=== PATIENT | female | born 1940 | race Caucasian/White ===

== ENCOUNTER 2024-05-07 11:27 | Observation (INO) ==
[2024-05-07] MEDS: dilTIAZem HCl 5 MG/ML 5 ML VIAL IV STA ×2 (12:11→12:58)
[2024-05-07 12:24] LABS: Basophils # (auto) 0.02 K/uL (0.00-0.20); Basophils % (auto) 0.1 %; Eosinophils # (auto) 0.01 K/uL (0.00-0.50); Eosinophils % (auto) 0.1 %; Hematocrit (blood only) 41.1 % (37.0-47.0); Immature Granulocytes # (auto) 0.24 K/uL (0.01-0.20); Immature Granulocytes % (auto) 1.3 %; Lymphocytes # (auto) 2.61 K/uL (1.20-3.40); Lymphocytes % (auto) 14.5 %; Mean Corpuscular Hemoglobin 29.8 pg (25.0-34.0); Mean Corpuscular Hgb Conc 34.1 g/dL (32.0-36.0); Mean Corpuscular Volume 87.4 fL (80.0-100.0); Monocytes # (auto) 0.94 K/uL (0.11-0.59); Monocytes % (auto) 5.2 %; Neutrophils # (auto) 14.24 K/uL (1.40-6.50); Neutrophils % (auto) 78.8 %; Platelet Count 402 K/uL (130-400); RDW Coefficient of Variation 12.8 % (11.5-14.5); RDW Standard Deviation 41.2 fL (36.4-46.3); White Blood Count 18.06 K/ul (4.8-10.8)
[2024-05-07 12:44] LABS: Albumin Globulin Ratio 0.9 (0.9-2); Albumin Level 3.7 gm/dl (3.4-5.0); BUN Creatinine Ratio 24.7 (10-20); Bilirubin,Total 0.8 mg/dl (0.2-1.0); Calcium 9.7 mg/dl (8.6-10.3); Creatinine Clr Calc Pharmacy 38.2 ml/min; Globulin 4.3 gm/dl (2.5-4.0); Potassium 2.8 mmol/L (3.5-5.1)
[2024-05-07 12:49] LABS: Troponin I High Sensitivity 29.9 pg/ml (0-14)
[2024-05-07] MEDS: SODIUM CHLORIDE 0.9% 500 ML IV ONE (13:02)
[2024-05-07 13:09] LABS: D Dimer 1400 ug/L FEU (0-500)
--- NOTE | 2024-05-07 13:14 | XRay Report ---
XR chest 1V portable CLINICAL HISTORY: Chest pain, nonspecific. Cough. COMPARISON STUDY: No previous studies for comparison. FINDINGS: There is no pneumothorax. A suspected small right pleural effusion is present. There is als o right basilar opacity. Minimal left basilar opacity is noted. The heart is mildly enlarged. There i s no evidence for pulmonary edema. There is prominence of the left mediastinal contour at the expecte d location of the left pulmonary artery. A 1.8 cm irregular right midlung nodular density is present. IMPRESSION: 1. Right basilar airspace opacity which favors pneumonia. Radiographic follow-up to ensure resolution is recommended. Suspected small right pleural effusion. 2. 1.8 cm right midlung nodular density. This may also be infectious however a pulmonary nodule could appear similar. This can be assessed on follow-up exams. 3. Prominence of the left mediastinal contour at the expected location of the left pulmonary artery. This could be vascular in etiology. However, lymphadenopathy or a mass cannot be completely excluded. This could be assessed with a chest CT. ACT 112: Negative or not required by law. Electronically signed by: Thony Narayan M.D. 05/07/2024 1:09 PM
[2024-05-07 13:23] LABS: Adenovirus PCR Not Detected (NotDetected); Bordetella parapertussis PCR Not Detected (NotDetected); Bordetella pertussis PCR Not Detected (NotDetected); Chlamydia pneumoniae PCR Not Detected (NotDetected); Coronavirus 229E PCR Not Detected (NotDetected); Coronavirus CoV-2 (COVID19)PCR Not Detected (NotDetected); Coronavirus HKU1 PCR Not Detected (NotDetected); Coronavirus NL63 PCR Not Detected (NotDetected); Coronavirus OC43PCR Not Detected (NotDetected); Human Metapneumovirus PCR Not Detected (NotDetected); Influenza A PCR Not Detected (NotDetected); Influenza B PCR Not Detected (NotDetected); Mycoplasma pneumoniae PCR Not Detected (NotDetected); Parainfluenza Virus 1 PCR Not Detected (NotDetected); Parainfluenza Virus 2 PCR Not Detected (NotDetected); Parainfluenza Virus 3 PCR Not Detected (NotDetected); Parainfluenza Virus 4 PCR Not Detected (NotDetected); Respiratory Syncytial VirusPCR Not Detected (NotDetected); Rhinovirus/Enterovirus PCR Not Detected (NotDetected)
[2024-05-07] MEDS: OPTIRAY 320 125ml IV ONE (13:41)
[2024-05-07] MEDS: POTASSIUM CHLORIDE CRTAB 20 MEQ TABCR PO STA (13:49)
--- NOTE | 2024-05-07 14:25 | CT Scan Report ---
CT angio chest PE protocol CT DOSE: 375.37 mGy.cm HISTORY: 83 years-old Female with PE. Acute shortness of breath with chest pain TECHNIQUE: Multiple CTA images of the chest were obtained after the intravenous administration of 119 ml Optiray. Coronal and sagittal MIPS were obtained from the axial data set and were submitted for review. All measurements were obtained according to NASCET criteria. A dose lowering technique was u tilized adhering to the principles of ALARA. COMPARISON: Chest radiograph of same day FINDINGS: CTA: Moderate cardiomegaly. Extensive coronary artery calcifications. Trace pericardial effusion. Moderate atherosclerosis of the thoracic aorta with ascending ectasia measuring 3.8 x 3.8 cm. Borderline dila tion of the main pulmonary artery at 3 cm. No pulmonary emboli. CT CHEST: Unremarkable thyroid. Mediastinal and right hilar lymphadenopathy includes a 2.1 x 1.1 cm right hilar lymph node. Subcarinal lymph nodes measure up to 1.2 cm in short axis. There is moderate right hemidiaphragm elevation. Trace right pleural effusion. Mild biapical pleural- parenchymal scarring. Mild bronchiectasis with mucus plugging of the right middle lobe and lingula. S cattered bilateral tree-in-bud nodules with patchy segmental consolidation of the right lower lobe. 9 mm nodule with eccentric calcification and central macroscopic fat, image 73 series 4. Minimal patch y subpleural consolidation of the basal left lower lobe. Probable cyst of the right hepatic lobe. No acute upper abdominal abnormality. Soft tissues are withi n normal limits. Nonspecific distal esophageal wall thickening. No acute fracture. IMPRESSION: 1. Cardiomegaly without pulmonary emboli identified. 2. Patchy right lung/right lower lobe predominant opacities suggestive of pneumonia versus aspiration pneumonitis. 3. Bilateral tree-in-bud nodules compatible with an infectious or inflammatory bronchiolitis. 4. 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 5. 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 6. Mediastinal and right hilar lymphadenopathy is likely reactive. ACT 112: Negative or not required by law. The above report was generated using voice recognition software. It may contain grammatical, syntax o r spelling errors. Electronically signed by: Guanako Gutierres M.D. 05/07/2024 2:19 PM
--- NOTE | 2024-05-07 15:07 | Electrocardiogram Report ---
Test Reason : Blood Pressure : */* mmHG Vent. Rate : 148 BPM Atrial Rate : 300 BPM P-R Int : * ms QRS Dur : 102 ms QT Int : 264 ms P-R-T Axes : * -62 103 degrees QTcB Int : 414 ms Possible Atrial flutter with variable A-V block with premature ventricular or aberrantly conducted co mplexes Left axis deviation Minimal voltage criteria for LVH, may be normal variant ( [place] product ) Nonspecific ST and T wave abnormality Abnormal ECG No previous ECGs available Confirmed by Lebron Weaver ([id number]) on 05/07/2024 3:07:01 PM Referred By: Za Mays Confirmed By: Lebron Weaver
--- NOTE | 2024-05-07 16:28 | Emergency Department Note ---
ED Visit Note I was consulted by the Advanced Practice Provider. I personally approved the management plan and take responsibility for the patient management. This includes the aspects of: -History/Physical -MDM -I independently interpreted the following studies:Studies and results .
[2024-05-07] MEDS: cefTRIAXone SODIUM 1,000 MG/50 ML BAG IV STA (16:33)
--- NOTE | 2024-05-07 16:49 | History & Physical Report ---
<Statement entered by Crow Curran, DO - 05/12/24 07:15> I have seen and examined the patient and have discussed the case with the provider above. I have reviewed the advanced practitioner's documentation, and I agree with, and take responsibility for that plan of care. Patient seen and examined on the day of admission. Patient feeling somewhat improved since admission. Physical exam: Lungs: Coarse breath sounds Discussed plan of care as outlined below with SHANNAN Date of Service May 07, 2024 Assessment & Plan (1) Atrial flutter with rapid ventricular response: (2) Pneumonia: (3) Hypokalemia: (4) HTN (hypertension): (5) Dyslipidemia: Plan: Patient is 83 year old female with PMH HTN, dyslipidemia, atrial flutter anticoagulated on Eliquis presented to ER for URI symptoms x 1 week and tachycardia today. #Pneumonia, RLL, community acquired WBC: 18. Procalcitonin:0.1, Lactate WNL. Negative respiratory BioFire panel. D- dimer: 1400 CXR: Right basilar airspace opacity which favors pneumonia CTA Chest: Cardiomegaly without pulmonary emboli identified. Patchy right lung/right lower lobe predominant opacities suggestive of pneumonia versus aspiration pneumonitis. Bilateral tree-in-bud nodules compatible with an infectious or inflammatory bronchiolitis. 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 Mediastinal and right hilar lymphadenopathy is likely reactive. In ER given Rocephin, doxycycline Will continue Rocephin, doxycycline Supplemental oxygen as needed Guaifenesin Incentive spirometry, flutter valve, Mucinex, Xopenex nebs as needed CBC in am #Aflutter RVR: #Hypokalemia History atrial flutter anticoagulated on Eliquis Initial EKG at 11:38 AM: Atrial flutter, RVR rate 148, nonspecific ST and T wave changes. Initial ER presentation patient afebrile, P: 137, R: 20, BP 114/68, 95% on room air In ER given 500 mL NSS, initial Cardizem 10 mg IV bolus followed by diltiazem 20 mg IV bolus. KCl 40 mEq p.o., 1K rider, During ER course patient converted to normal sinus rhythm with heart rates in the 80s. Repeat EKG at 2:32 PM normal sinus rhythm, rate 74 Suspect rapid aflutter secondary to underlying illness and electrolyte abnormality Continue to replace potassium. Goal potassium of 4 or greater. Magnesium level pending Troponin: 29-->18 Suspect demand ischemia in setting of rapid aflutter Trend troponin Echo Continue home metoprolol succinate, Eliquis If troponins uptrending or recurrent/persistent RVR consider cardiology consult CBC, BMP, magnesium, TSH in am #HTN Continue home amlodipine, metoprolol succinate Hold olmesartan, HCTZ #Dyslipidemia Continue home atorvastatin DVT Prophylaxis On Eliquis Admit PCU Full Code as per discussion with pt Follows with Za Mays PA-C, [facility] for routine care Pt was seen and care coordinated with Dr Curran See addendum I spent a total of 76 minutes reviewing notes, outpatient records, labs, medication, coordinating, documenting and providing care for this patient excluding time spent in the performance of separately billed services. History of Present Illness Chief Complaint: cough, rapid heart rate Primary Care Provider: Za Mays PA-C Patient is 83 year old female with PMH HTN, dyslipidemia, atrial flutter anticoagulated on Eliquis presented to ER for URI symptoms x 1 week and tachycardia today. Per outpatient chart review seen in clinic today for URI symptoms and found to be tachycardic and referred to ER. Patient states for past week has had nasal and chest congestion, cough. Last several days cough has become productive of green-yellow sputum. Reports last couple days feeling short of breath with exertion. Denies chest pain. She states she faintly felt like her heart was racing but she did not feel was not significant. Has been feeling cold at home. Has not been taking her temperature at home. Denies chills. States feels a little lightheaded past couple days. Denies syncope. Reports generalized weakness and feels wiped out. Decreased oral intake secondary to decreased appetite. Deneis vomiting or diarrhea. Has been using mucinex at home without much relief. Denies pseudoephedrine products. Denies SOMMERS, neck pain, CP, hemoptysis, abdominal pain, paresthesias, extremity edema, rashes, urinary symptoms. Allergies Allergy/AdvReac Type Severity Reaction Status Date / Time fluorouracil [From Efudex] Allergy Severe Verified 01/15/24 09:28 Home Medications Medication Instructions Recorded Confirmed Type fluticasone propionate 50 2 spray intranasal DAILY PRN nasal 04/02/22 05/07/24 History mcg/actuation nasal congestioni spray,suspension (Flonase Allergy Relief) apixaban 5 mg tablet 5 mg PO BID #180 tabs 07/04/23 05/07/24 Rx aspirin 81 mg tablet,delayed 81 mg PO DAILY #90 tabs 07/04/23 05/07/24 Rx release (Adult Aspirin Regimen) atorvastatin 20 mg tablet 20 mg PO DAILY #90 tabs 07/04/23 05/07/24 Rx metoprolol succinate 25 mg 25 mg PO DAILY #90 tabs 07/04/23 05/07/24 Rx tablet,extended release 24 hr albuterol sulfate 90 mcg/actuation 2 puff inhalation Q6H PRN sob 05/07/24 05/07/24 History aerosol inhaler amlodipine 5 mg tablet 5 mg PO QAM 05/07/24 05/07/24 History dextran 70-hypromellose (PF) 0.1 2 drp ophthalmic (eye) BID PRN Dry 05/07/24 05/07/24 History %-0.3 % eye drops in a dropperette Eye(S) (Artificial Tears (PF)) olmesartan 40 1 tab PO QAM 05/07/24 05/07/24 History mg-hydrochlorothiazide 25 mg tablet Past Med/Surg History Problem List (Updated 05/07/24 @ 20:49 by Claudia Bee PA-C) Hypokalemia Pneumonia Atrial flutter with rapid ventricular response HTN (hypertension) Dyslipidemia Benign essential hypertension Atrial flutter Surgical History History of hysterectomy Family History Other Dementia Social History Smoking Status: Never smoker Second Hand Exposure: No; Do You Dip or Chew Tobacco: No; Hx Alcohol Use: No Hx Substance Use: No Preferred Language: Grenadian Communication Ability: Effective Waxer Operator Required: No Beliefs That Will Affect Care: None Current Living Situation: Family Current Living Situation Comment: Lives with daughter at home Other Information That Helps Us Care for You: No Feels Safe at Home: Yes Assistive Devices: None Review of Systems Review of Systems: All systems reviewed & are unremarkable except as noted in HPI & below Physical Exam 2 Physical Exam: General: no distress, WDWN Head: normocephalic, atraumatic Eyes: conjunctiva non-injected, anicteric ENT: normal inspection external ears, nose, mucous membranes mildly dry Neck: supple, trachea midline Lungs: no respiratory distress, coarse breath sounds throughout CV: RRR, rate 84, +murmur, no pretibial edema Abd: normal BS, soft, non-tender Ext: no cyanosis, no calf tenderness Neuro: A&O x 3, no focal deficits noted, normal affect Skin: warm, dry Results & Data Results & Data Vital Signs (Past 12 Hours) Vital Signs Temp Pulse Resp BP Pulse Ox O2 Del Method 05/07/24 15:47 80 05/07/24 15:22 92 05/07/24 15:00 77 25 H 116/68 93 05/07/24 13:15 94 H 24 116/68 05/07/24 13:00 117/87 05/07/24 12:54 127 H 26 H 05/07/24 12:45 125 H 25 H 111/77 90 Room Air 05/07/24 12:15 109/57 L 05/07/24 12:03 149 H 27 H 93 Room Air 05/07/24 12:01 149 H 05/07/24 12:00 127/102 H 05/07/24 11:57 141 H 23 94 Room Air 05/07/24 11:30 36.7 C 137 H 20 114/68 95 Room Air Laboratory Results Short CBC 05/07/24 Range/Units 11:40 WBC 18.06 H (4.8-10.8) K/ul Hgb 14.0 (12.0-16.0) g/dl Hct 41.1 (37.0-47.0) % Plt Count 402 H (130-400) K/uL BMP 05/07/24 11:40 Sodium 134 L Potassium 2.8 L Chloride 92 L Carbon Dioxide 30 BUN 22 Creatinine 0.89 Glucose 103 H Calcium 9.7 Liver Function 05/07/24 Range/Units 11:40 Total Bilirubin 0.8 (0.2-1.0) mg/dl AST 41 H (13-39) U/L ALT 47 (7-52) U/L Alkaline Phosphatase 151 H (34-104) U/L Albumin 3.7 (3.4-5.0) gm/dl Diagnostic Findings Chest X-Ray 05/07/24 12:02 XR chest 1V portable CLINICAL HISTORY: Chest pain, nonspecific. Cough. COMPARISON STUDY: No previous studies for comparison. FINDINGS: There is no pneumothorax. A suspected small right pleural effusion is present. There is also right basilar opacity. Minimal left basilar opacity is noted. The heart is mildly enlarged. There is no evidence for pulmonary edema. There is prominence of the left mediastinal contour at the expected location of the left pulmonary artery. A 1.8 cm irregular right midlung nodular density is present. IMPRESSION: 1. Right basilar airspace opacity which favors pneumonia. Radiographic follow-up to ensure resolution is recommended. Suspected small right pleural effusion. 2. 1.8 cm right midlung nodular density. This may also be infectious however a pulmonary nodule could appear similar. This can be assessed on follow-up exams. 3. Prominence of the left mediastinal contour at the expected location of the left pulmonary artery. This could be vascular in etiology. However, lymphadenopathy or a mass cannot be completely excluded. This could be assessed with a chest CT. ACT 112: Negative or not required by law. Electronically signed by: Thony Narayan M.D. 05/07/2024 1:09 PM Chest CTA 05/07/24 13:10 CT angio chest PE protocol CT DOSE: 375.37 mGy.cm HISTORY: 83 years-old Female with PE. Acute shortness of breath with chest pain TECHNIQUE: Multiple CTA images of the chest were obtained after the intravenous administration of 119 ml Optiray. Coronal and sagittal MIPS were obtained from the axial data set and were submitted for review. All measurements were obtained according to NASCET criteria. A dose lowering technique was utilized adhering to the principles of ALARA. COMPARISON: Chest radiograph of same day FINDINGS: CTA: Moderate cardiomegaly. Extensive coronary artery calcifications. Trace pericardial effusion. Moderate atherosclerosis of the thoracic aorta with ascending ectasia measuring 3.8 x 3.8 cm. Borderline dilation of the main pulmonary artery at 3 cm. No pulmonary emboli. CT CHEST: Unremarkable thyroid. Mediastinal and right hilar lymphadenopathy includes a 2.1 x 1.1 cm right hilar lymph node. Subcarinal lymph nodes measure up to 1.2 cm in short axis. There is moderate right hemidiaphragm elevation. Trace right pleural effusion. Mild biapical pleural-parenchymal scarring. Mild bronchiectasis with mucus plugging of the right middle lobe and lingula. Scattered bilateral tree-in-bud nodules with patchy segmental consolidation of the right lower lobe. 9 mm nodule with eccentric calcification and central macroscopic fat, image 73 series 4. Minimal patchy subpleural consolidation of the basal left lower lobe. Probable cyst of the right hepatic lobe. No acute upper abdominal abnormality. Soft tissues are within normal limits. Nonspecific distal esophageal wall thickening. No acute fracture. IMPRESSION: 1. Cardiomegaly without pulmonary emboli identified. 2. Patchy right lung/right lower lobe predominant opacities suggestive of pneumonia versus aspiration pneumonitis. 3. Bilateral tree-in-bud nodules compatible with an infectious or inflammatory bronchiolitis. 4. 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 5. 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 6. Mediastinal and right hilar lymphadenopathy is likely reactive. ACT 112: Negative or not required by law. The above report was generated using voice recognition software. It may contain grammatical, syntax or spelling errors. Electronically signed by: Guanako Gutierres M.D. 05/07/2024 2:19 PM Code Status & VTE Plan VTE Prophylaxis Plan VTE Prophylaxis will be ordered: Yes
[2024-05-07] MEDS: POTASSIUM CHLORIDE / WTR 10 MEQ/100 ML PLCT IV ONE (17:08)
[2024-05-07] MEDS: DOXYCYCLINE HYCLATE 100 MG in DEXTROSE 5% MINI-B 100 ML IV STA (17:09)
[2024-05-07 18:30] LABS: Magnesium 1.9 mg/dl (1.7-2.4)
[2024-05-07] MEDS: POTASSIUM CHLORIDE / WTR 10 MEQ/100 ML PLCT IV SCH (18:44)
[2024-05-07] MEDS ORDERED: FLUTICASONE PROPIONATE NA SPR 16 GM BTL NAE PRN (18:52)
[2024-05-07] MEDS ORDERED: LEVALBUTEROL 1.25 MG/3 ML NEB NEB PRN (18:52)
[2024-05-07] MEDS ORDERED: ACETAMINOPHEN 325 MG TAB PO PRN (18:52)
[2024-05-07] MEDS ORDERED: POLYETHYLENE (MIRALAX) 17 GM PACK PO PRN (18:52)
[2024-05-07] MEDS ORDERED: ARTIFICIAL TEARS OP PRN (19:34)
[2024-05-07] MEDS: MAGNESIUM SULFATE / D5W 1 GM/100 ML BAG IV ONE (21:11)
[2024-05-07] MEDS: guaiFENesin 600 MG TABCR PO SCH (21:16)
[2024-05-07] MEDS: APIXABAN 5 MG TABLET PO SCH (21:16)
[2024-05-07] MEDS: POTASSIUM CHLORIDE CRTAB 20 MEQ TABCR PO ONE (21:17)
[2024-05-08] MEDS: DOXYCYCLINE HYCLATE 100 MG CAP PO SCH (06:00)
[2024-05-08 07:40] LABS: Basophils # (auto) 0.03 K/uL (0.00-0.20); Basophils % (auto) 0.2 %; Eosinophils # (auto) 0.04 K/uL (0.00-0.50); Eosinophils % (auto) 0.3 %; Hematocrit (blood only) 33.3 % (37.0-47.0); Hemoglobin 11.3 g/dl (12.0-16.0); Immature Granulocytes # (auto) 0.16 K/uL (0.01-0.20); Immature Granulocytes % (auto) 1.3 %; Lymphocytes % (auto) 17.3 %; Mean Corpuscular Hemoglobin 29.7 pg (25.0-34.0); Mean Corpuscular Hgb Conc 33.9 g/dL (32.0-36.0); Mean Corpuscular Volume 87.6 fL (80.0-100.0); Monocytes # (auto) 0.77 K/uL (0.11-0.59); Neutrophils # (auto) 9.55 K/uL (1.40-6.50); Neutrophils % (auto) 74.9 %; Platelet Count 309 K/uL (130-400); RDW Coefficient of Variation 13.1 % (11.5-14.5); RDW Standard Deviation 41.4 fL (36.4-46.3); White Blood Count 12.75 K/ul (4.8-10.8)
--- NOTE | 2024-05-08 07:41 | Hospitalist Progress Note ---
Date of Service May 08, 2024 Assessment & Plan (1) Atrial flutter with rapid ventricular response: (2) Pneumonia: (3) Hypokalemia: (4) HTN (hypertension): (5) Dyslipidemia: Plan: Ms. Lynch is an 83 year old female with PMH HTN, dyslipidemia, atrial flutter anticoagulated on Eliquis presented to ER for URI symptoms x 1 week and tachycardia. Patient treated with IV antibiotics thus far with subjective improvement. She has history of pneumonias exacerbating her a fib/flutter. CXR and abd/p CT evaluated from last years in EMR linek with this ongoing peribronchial bandlike opacities +From CT ab/p 04/30: FINDINGS: Lungs: The mild bibasilar bronchiectasis with scattered peribronchial bandlike in nodular consolidative opacities likely secondary to bibasilar pneumonia and subsegmental atelectasis. There is also some patchy bronchiolitis at the lung bases. +CXR 2022 IMPRESSION IMPRESSION: 1. Scattered bibasilar opacities in part secondary to subsegmental atelectasis with superimposed pneumonia to be excluded. 2. Nonspecific ill-defined opacity projecting just above the left hilum for which follow-up nonemergent CT chest recommended for clarification. +FINDINGS Lines/Tubes: None. Lungs/Pleura: There are bibasilar opacities correlating with prior areas of airspace disease on the 04/30/2023 CT as well as a new area of airspace disease in the right mid-upper lung zone. Overall, favor this is thought to reflect persistent acute on chronic infection noting the acute-appearing airspace disease and superimposed bronchiectasis seen on review of priors. No pleural effusions. No discernible pneumothorax. Heart/Mediastinum: Size and contours are within normal limits. Bones/Soft Tissues: No acute osseous finding. Upper Abdomen: Visualized portions are unremarkable. Impression: IMPRESSION Multifocal airspace disease, suspect acute on chronic pneumonia, with marginal worsening from 04/30/2023. Discussed with Pulm off line about Mycobacterium Avium Complex. AFB ordered . Will need PCP follow up for OP pulm management and repeat CT chest in 6 weeks. Otherwise cover for pseudomonas #Pneumonia, RLL, community acquired WBC: 18. Procalcitonin:0.1, Lactate WNL. Negative respiratory BioFire panel. D- dimer: 1400 CXR: Right basilar airspace opacity which favors pneumonia CTA Chest: Cardiomegaly without pulmonary emboli identified. Patchy right lung/right lower lobe predominant opacities suggestive of pneumonia versus aspiration pneumonitis. Bilateral tree-in-bud nodules compatible with an infectious or inflammatory bronchiolitis. 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 Mediastinal and right hilar lymphadenopathy is likely reactive. In ER given Rocephin, doxycycline Transitioned to Cefepime, Doxy Supplemental oxygen as needed Guaifenesin Incentive spirometry, flutter valve, Mucinex, Xopenex nebs as needed CBC in am #Aflutter RVR: #Hypokalemia History atrial flutter anticoagulated on Eliquis Initial EKG at 11:38 AM: Atrial flutter, RVR rate 148, nonspecific ST and T wave changes. Initial ER presentation patient afebrile, P: 137, R: 20, BP 114/68, 95% on room air In ER given 500 mL NSS, initial Cardizem 10 mg IV bolus followed by diltiazem 20 mg IV bolus. KCl 40 mEq p.o., 1K rider, During ER course patient converted to normal sinus rhythm with heart rates in the 80s. Repeat EKG at 2:32 PM normal sinus rhythm, rate 74 Suspect rapid aflutter secondary to underlying illness and electrolyte abnormality Continue to replace potassium. Goal potassium of 4 or greater. Magnesium level pending Troponin: 29-->18 Suspect demand ischemia in setting of rapid aflutter Trend troponin Echo: with pulm HTN possible 2/2 lung disease, EF 60-65% Continue home metoprolol succinate, Eliquis CTM on tele #HTN Continue home amlodipine, metoprolol succinate Hold olmesartan, HCTZ #Dyslipidemia Continue home atorvastatin DVT Prophylaxis On Eliquis Admit PCU Full Code as per discussion with pt Follows with Za Mays PA-C, [facility] for routine care Admission and Anticipated Discharge Date Admission Date: May 07, 2024 Subjective NAEO sitting on bedside eating breakfast Reports feeling much better coughwise--denies any fevers Inquired about past symptoms: she denies history of hemoptysis, chronic cough However has been to hospital 3 times over the last year for pneumonias Physical Exam Constitutional: WD/WN, vitals as above Respiratory: course bilateral breath sounds Cardiovascular: RRR, no murmur, no edema Gastrointestinal (Abdomen): normal bowel sounds, soft, nontender, no hepatosplenomegaly Results & Data Results & Data Vital Signs (Past 12 Hours) Vital Signs Temp Pulse Pulse Resp BP Pulse Ox O2 Del Method 05/08/24 07:31 36.9 C 81 17 133/73 91 Room Air 05/08/24 03:56 37.0 C 80 18 121/72 92 Room Air 05/07/24 23:32 37.5 C 84 18 123/66 95 Room Air 05/07/24 22:11 Room Air 05/07/24 21:54 84 05/07/24 19:45 37.2 C 88 18 125/66 91 Room Air Laboratory Results Short CBC 05/08/24 Range/Units 06:23 WBC 12.75 H (4.8-10.8) K/ul Hgb 11.3 L (12.0-16.0) g/dl Hct 33.3 L (37.0-47.0) % Plt Count 309 (130-400) K/uL BMP 05/08/24 06:23 Sodium 134 L Potassium 4.2 D Chloride 98 Carbon Dioxide 29 BUN 15 Creatinine 0.66 Glucose 88 Calcium 8.9 Medications Administered Home Medications Medication Instructions Recorded Confirmed Last Taken fluticasone propionate 50 2 spray intranasal DAILY PRN nasal 04/02/22 05/07/24 Unknown mcg/actuation nasal congestioni spray,suspension (Flonase Allergy Relief) apixaban 5 mg tablet 5 mg PO BID #180 tabs 07/04/23 05/07/24 05/07/24 aspirin 81 mg tablet,delayed 81 mg PO DAILY #90 tabs 07/04/23 05/07/24 05/07/24 release (Adult Aspirin Regimen) atorvastatin 20 mg tablet 20 mg PO DAILY #90 tabs 07/04/23 05/07/24 05/07/24 metoprolol succinate 25 mg 25 mg PO DAILY #90 tabs 07/04/23 05/07/24 05/07/24 tablet,extended release 24 hr albuterol sulfate 90 mcg/actuation 2 puff inhalation Q6H PRN sob 05/07/24 05/07/24 Unknown aerosol inhaler amlodipine 5 mg tablet 5 mg PO QAM 05/07/24 05/07/24 05/07/24 dextran 70-hypromellose (PF) 0.1 2 drp ophthalmic (eye) BID PRN Dry 05/07/24 05/07/24 Unknown %-0.3 % eye drops in a dropperette Eye(S) (Artificial Tears (PF)) olmesartan 40 1 tab PO QAM 05/07/24 05/07/24 05/07/24 mg-hydrochlorothiazide 25 mg tablet Active Medications Generic Name Dose Route Start Last Admin Trade Name Freq PRN Reason Stop Dose Admin Amlodipine Besylate 5 mg 05/08/24 09:00 05/08/24 08:29 Amlodipine Besylate 5 Mg Tab PO 06/07/24 08:59 5 mg QAM BERHANE Administration Apixaban 5 mg 05/07/24 21:00 05/08/24 08:29 Apixaban 5 Mg Tablet PO 06/06/24 20:59 5 mg BID BERHANE Administration Aspirin 81 mg 05/08/24 09:00 05/08/24 08:29 Aspirin 81 Mg Ectab PO 06/07/24 08:59 81 mg DAILY BERHANE Administration Atorvastatin Calcium 20 mg 05/08/24 09:00 05/08/24 08:29 Atorvastatin 20 Mg Tab PO 06/07/24 08:59 20 mg DAILY BERHANE Administration Doxycycline Hyclate 100 mg 05/08/24 07:00 05/08/24 06:00 Doxycycline Hyclate 100 Mg Cap PO 05/13/24 06:59 100 mg Q12H BERHANE Administration Guaifenesin 600 mg 05/07/24 21:00 05/08/24 08:29 Guaifenesin 600 Mg Tabcr PO 06/06/24 20:59 600 mg Q12 BERHANE Administration Metoprolol Succinate 25 mg 05/08/24 09:00 05/08/24 08:29 Metoprolol Succ 25mg Ext Rel Tab PO 06/07/24 08:59 25 mg DAILY BERHANE Administration
[2024-05-08 07:53] LABS: BUN Creatinine Ratio 22.7 (10-20); Calcium 8.9 mg/dl (8.6-10.3); Magnesium 1.9 mg/dl (1.7-2.4); Potassium 4.2 mmol/L (3.5-5.1)
[2024-05-08 08:11] LABS: Thyroid Stimulating Hormone 2.765 uIu/ml (0.300-4.500)
[2024-05-08] MEDS: METOPROLOL SUCC 25MG EXT REL TAB PO SCH (08:29)
[2024-05-08] MEDS: ASPIRIN 81 MG ECTAB PO SCH (08:29)
[2024-05-08] MEDS: amLODIPine BESYLATE 5 MG TAB PO SCH (08:29)
[2024-05-08] MEDS: ATORVASTATIN 20 MG TAB PO SCH (08:29)
--- NOTE | 2024-05-08 08:44 | Electrocardiogram Report ---
Test Reason : Blood Pressure : */* mmHG Vent. Rate : 74 BPM Atrial Rate : 74 BPM P-R Int : 138 ms QRS Dur : 102 ms QT Int : 398 ms P-R-T Axes : 60 -59 57 degrees QTcB Int : 441 ms Normal sinus rhythm Left anterior fascicular block Left ventricular hypertrophy with repolarization abnormality Abnormal ECG When compared with ECG of 07-May-2024 11:38, Sinus rhythm has replaced Atrial flutter Vent. rate has decreased by 74 bpm Confirmed by Candelario Arzate ([id number]) on 05/08/2024 8:44:09 AM Referred By: Za Mays Confirmed By: Candelario Arzate
--- NOTE | 2024-05-08 09:09 | Electrocardiogram Report ---
Test Reason : Blood Pressure : */* mmHG Vent. 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
[2024-05-08] MEDS: CEFEPIME 2000MG 2,000 MG/20 ML SYR IV SCH (14:01)
[2024-05-08] MEDS ORDERED: cefTRIAXone SODIUM 2,000 MG/50 ML BAG IV SCH (15:00)
[2024-05-09 05:58] LABS: Hematocrit (blood only) 32.7 % (37.0-47.0); Hemoglobin 10.9 g/dl (12.0-16.0); Mean Corpuscular Hemoglobin 29.4 pg (25.0-34.0); Mean Corpuscular Hgb Conc 33.3 g/dL (32.0-36.0); Mean Corpuscular Volume 88.1 fL (80.0-100.0); Mean Platelet Volume 9.7 fL (9.4-12.4); Platelet Count 300 K/uL (130-400); RDW Coefficient of Variation 12.3 % (11.5-14.5); RDW Standard Deviation 39.8 fL (36.4-46.3); Red Blood Count 3.71 M/uL (4.20-5.40); White Blood Count 10.27 K/ul (4.8-10.8)
[2024-05-09 06:13] LABS: BUN Creatinine Ratio 16.4 (10-20); Potassium 4.2 mmol/L (3.5-5.1)
[2024-05-09] MEDS: levoFLOXacin 750 MG TAB PO SCH (11:12)
--- OUTSIDE RECORDS SUMMARY | 2024-05-09 14:46 | External Medical Summary | Summary of Care ---
Author Name Unknown Organization [facility] Address [address] [place] [address] Phone [phone] Care Team Providers Care Health Education Teacher Name Role Phone Za Mays PA-C Primary Care Provider Reason for Visit * Reason Onset Date Comments Follow Up Medication Administration 03/29/2024 Flu an d/or Pneumo Inj Encounter Details Date Type Department Care Team ([facility] st Contact Info) Description 03/29/2024 8:00 AM EDT Office Visit [address] [phone] Za Mays PA-C [address] [place] [id number] Atrial flutter, unspecified type (HCC)*; HTN, goal below 150/90; Mixed hyperlipidemia; Localized osteoporosis without current pathological fracture; History of basal cell carcinoma; Pseudoexfoliation (PXF) glaucoma, severe stage; Wears partial dentures; Need for prophylactic vaccination and inoculation against influenza; Need for vaccination for zoster Allergies Active Allergy Reactions Criticality Noted Date Comments Fluorouracil Allergy test positive High 07/24/2022 documented as of this encounter (statuses as of 03/29/2024) Medications Medication Sig Dispensed Refills Start Date End Date Status Apixaban 5 MG Oral Tablet (Eliquis) Take 1 Tablet by mouth in the morning and 1 Tablet before bedtime. 60 Tablet 6 07/03/2022 Active Artificial Tears 0.1-0.3 % Ophthalmic Solution (Dextran 70-Hypromellose) Use twice daily as needed for dry eyes 30 mL 3 07/03/2022 Active Hydrocortisone 2.5 % External Ointment Apply to face 2-3 times per day 60 g 1 07/24/2022 Active Aspirin 81 MG Oral Tablet Chewable Take 1 Tablet by mouth in the morning. Active Atorvastatin Calcium 20 MG Oral Tablet (Lipitor) TAKE 1 TABLET BY MOUTH ONCE DAILY IN THE MORNING 90 Tablet 3 06/03/2023 Active Fluticasone Propionate 50 MCG/ACT Nasal Suspension (Flonase) Administer 2 Sprays into nostril in the morning. 16 mL 5 09/30/2023 Active amLODIPine Besylate 2.5 MG Oral Tablet (Norvasc)Indication s:HTN, goal below 150/90 Take 1 Tablet by mouth in the morning. 90 Tablet 3 03/29/2024 Active Olmesartan Medoxomil-HCTZ 40-25 MG Oral TabletIndications:H TN, goal below 150/90 Take 1 Tablet by mouth in the morning. 90 Tablet 1 03/29/2024 Active Metoprolol Succinate ER 25 MG Oral Tablet Extended Release 24 Hour (toPROL XL) Take 1 Tablet by mouth in the morning. 90 Tablet 3 03/29/2024 Active Zoster Vac Recomb Adjuvanted 50 MCG/0.5ML Intramuscular Suspension Reconstituted (Shingrix)Indicatio ns:Need for vaccination for zoster Inject 0.5 mL into a large muscle now and repeat dose in 60 to 180 days 1 Each 1 03/29/2024 Active Metoprolol Succinate ER 25 MG Oral Tablet Extended Release 24 Hour (toPROL XL) Take 1 Tablet by mouth in the morning. 90 Tablet 3 07/03/2022 4 Discontinue d(Refill) Alendronate Sodium 70 MG Oral Tablet (Fosamax)Indication s:Localized osteoporosis without current pathological fracture Take 1 Tablet by mouth once a week. with 8 oz. water 30 minutes before first meal of the day. Remain upright for 30 min after taking tablet. 15 Tablet 3 09/30/2023 4 Discontinue d(Patient preference/ discontinua tion) Olmesartan Medoxomil-HCTZ 40-25 MG Oral TabletIndications:H TN, goal below 150/90 Take 1 Tablet by mouth in the morning. 90 Tablet 1 09/30/2023 Discontinue d(Refill) Azithromycin 250 MG Oral Tablet (Zithromax Z-Preston)Indications:P neumonia of both lower lobes due to infectious organism Take two tablets by mouth on first day, then 1 tablet daily until gone 6 Tablet 12/25/2023 Discontinue d(Medicatio n List Clean Up) Benzonatate 100 MG Oral CapsuleIndications: Acute cough Take 1 Capsule by mouth 3 times a day as needed for Cough. 30 Capsule 12/25/2023 4 Discontinue d(Medicatio n List Clean Up) documented as of this encounter (statuses as of 03/29/2024) Active Problems Problem Noted Date Diagnosed Date Atrial flutter 03/31/2023 Localized osteoporosis witho ut current pathological fracture 09/24/2022 History of basal cell carcinoma 07/15/2022 Wears partial dentures 09/25/2021 Pseudoexfoliation (PXF) glaucoma, 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 HTN, goal below 150/90 03/17/2018 Hyperlipidemia 03/17/2018 Actinic keratosis 03/21/2009 documented as of this encounter (statuses as of 03/29/2024) Resolved Problems Problem Noted Date Diagnosed Date Resolved Date Benign essential hypertension 09/24/2022 03/29/2024 Osteopenia of right hip 03/17/2018 04/2 09/2022 Amyloidosis, unspecified 07/05/2009 Overview: 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 Favor Inflammatory Papule at L Oral Commissure 03/21/2009 07/05/2009 documented as of this encounter (statuses as of 03/29/2024) Immunizations Name Administration Dates Next Due Pneumococcal Conjugate Vacc, 13 Valent (Prevnar) 05/19/2020,08/23/2014 Pneumococcal Polysaccharide PPV23 (Pneumovax) 05/01/2010,05/01/2004,1938 Seasonal Influenza Virus Vac cine, Unspecified Formulation 03/20/2011,05/01/2010,04/14/2009,04/20 Seasonal Influenza, High Dos e, Trivalent, PF, IM (Fluzone HD) 03/29/2024 Seasonal Influenza, PF, 6 M & above, IM , (FluLaval or Fluzone) 03/17/2018 Seasonal Influenza, Quadriva lent Hd (Fluzone Hd) 03/31/2023,03/29/2022,03/29/2021 Seasonal Influenza, Quadriva lent Hd, 65+ Yrs 04/18/2020 Seasonal Influenza, Trivalen t, Adjuvanted, 65+ YRS, PF, (Fluad) 03/31/2019 documented as of this encounter Social History Tobacco Use Types Packs/Day Years Used Date Smoking Tobacco: Never Smokeless Tobacco: Never Tobacco Cessation:Counseling Given: Yes Alcohol Use Standard Drinks/Week Comments Yes 0 (1 standard drink = 0.6 oz pur e alcohol) socially PHQ-2 Answer Date Recorded PHQ Adult Total Score 0 03/31/2023 Hunger Vital Sign Answer Date Recorded Within the past 12 months, y ou worried that your food would run out before you got the money to buy more. Never true 04/30/20 23 Within the past 12 months, t he food you bought just didn't last and you didn't have money to get more. Never true 04/30/2023 Childcare Answer Date Recorded Do you feel overwhelmed with taking care of a child, family member or friend? No 04/30/2023 Does your family need help f inding childcare? (Household - for ages 0-17 years) Not on file 04/30/2023 Clothing Answer Date Recorded Have you been unable to get clothing when it was really needed? No 04/30/2023 Is your family able to get c lothes or diapers when needed? (Household - for ages 0-17 years) Not on file 04/30/2023 Personal Safety Answer Date Recorded Do you feel unsafe or have concerns for your saf ety? No 04/30/2023 Do you have concerns for you r family's safety? (Household - for ages 0-17 years) Not on file 04/30/2023 Utilities Answer Date Recorded Do you have trouble paying y our heating, water, or electric bill? No 04/30/2023 Is your family able to pay t he heat, water, or electric bill? (Household - for ages 0-17 years) Not on file 04/30/2023 Does your family have access to good internet? (Household - for ages 0-17 years) Not on file 04/30/2023 Employment Status Answer Date Recorded Are you unemployed or without regular income? No 04/30/2023 Does the household have a re gular source of income? (Household - for ages 0-17 years) Not on file 04/30/2023 Social Connections Answer Date Recorded How often do you feel lonely or isolated from th ose around you? Never 04/30/2023 Financial Resource Strain Answer Date R ecorded Do you have any trouble payi ng for your medications, or do you think you might in the future? No 04/30/2023 Does your family have troubl e paying for medicine? (Household - for ages 0-17 years) Not on file 04/30/2023 Transportation Needs Answer Date Record ed READ ONLY Do you have troubl e getting a ride to medical visits or work? Never True 04/30/2023 Does your family have a hard time getting a ride to doctors visits? (Household - for ages 0-17 years) Not on file 04/30/2023 Has lack of transportation k ept you from medical appointments, meetings, work, or from getting things needed for daily living? Check all that apply. (Adult - for ages 18 years and over) Not on file 04/30/2023 Do you (or your family) have trouble finding or paying for a ride (transportation)? (Household - for ages 0-17 years) Not on file 04/30/2023 Housing Stability Answer Date Recorded Do you currently live in a s helter or have no steady place to sleep at night? No 04/30/2023 READ ONLY Do you think you a re at risk of becoming homeless? No 04/30/2023 Does your family worry about paying for your home or becoming homeless? (Household - for ages 0-17 years) Not on file 1 06/30/2022 Are you homeless or worried that you might be in the future? (Adult - for ages 18 years and over) Not on file 3 Are you (or your family) prudence eless or worried that you might be in the future? (Household - for ages 0-17 years) Not on file Food Insecurity Answer Date Recorded Do you need food for this week? Yes 04/30/2023 Are you able to get enough f ood for your family? (Household - for ages 0-17 years) Not on file 04/30/2023 Does your family need food t his week? (Household - for ages 0-17 years) Not on file 04/30/2023 Do you always have enough fo od for your family? (Household - for ages 0-17 years) Not on file 04/30/2023 Sex and Gender Information Value Date Recorded Sex Assigned at Female 04/30/2023 8:19 AM EST Gender Identity Female 04/30/2023 8:19 AM EST Sexual Orientation Straight 04/30/2023 8: 19 AM EST Job Start Date Occupation Industry Not on file Not on file Not on file documented as of this encounter Last Filed Vital Signs Vital Sign Reading Time Taken Comments Blood Pressure 172/82 03/29/2024 7:56 AM EDT Pulse 62 03/29/2024 7:56 AM EDT Temperature 36.1 C (97 F) 03/29/2024 7:56 AM EDT Respiratory Rate 20 03/29/2024 7:56 AM EDT Oxygen Saturation 98% 03/29/2024 7:56 AM EDT Inhaled Oxygen Concentration - - Weight 64 kg (141 lb) 03/29/2024 7:56 AM EDT Height - - Body Mass Index 25.79 09/30/2023 7:28 AM EDT documented in this encounter Patient Instructions * Patient Instructions* Anita Lynn, MED ASSIST - 03/29/2024 7:57 AM EDT ~~PATIENT INSTRUCTIONS FOR FLU SHOT~~ Possible side effects of influenza vaccine, (flu shot), are usually mild and include: 1. Soreness or redness at injection site 2. Low grade fever 3. Body aches You may use Tylenol/Acetaminophen as needed for these symptoms. LET YOUR DOCTOR KNOW IMMEDIATELY IF YOU HAVE DIFFICULTY BREATHING OR SWALLOWING, EXPERIENCE ITCHINGOF FEET OR HANDS, HAVE SWELLING OF EYES, FACE OR INSIDE OF NOSE. ~~PATIENT INSTRUCTIONS FOR SHINGRIX VACCINE~~ Possible side effects of Shingrix vaccine, (shingles), are usually mild and can include: 1. Soreness or redness at injection site 2. Low grade fever 3. Body aches You may use a fever / pain reducing medication as needed for these symptoms. LET YOUR DOCTOR KNOW IMMEDIATELY IF YOU HAVE DIFFICULTY BREATHING OR SWALLOWING, EXPERIENCE ITCHINGOF FEET OR HANDS, HAVE SWELLING OF EYES, FACE OR INSIDE OF NOSE. documented in this encounter Progress Notes * Say Blanca LPN - 03/29/2024 7:57 AM EDT PRE - ADMINISTRATION DOCUMENTATION Are you experiencing any cold symptoms or fever? No Have you had Guillain-Sorrento Syndrome (an illness that causes paralysis) within the last 6 weeks? No Have you had the flu shot in the past? YES Have you ever had a reaction to the flu shot? No Say Blanca LPN, 03/29/2024 7:57 AM Immunization Administration Documentation Time Out Procedure Performed: Yes Patient Identified (Ask Name/Date of ): Yes Does the patient have a fever greater than 101 degrees today? No Patient allergic to latex? No VFC Stock: No Immunization(s) verified: Yes, Immunization Name: Flu, VIS Sheet(s) given: Yes Verified Side and Site: Yes Verified Shot(s) with Parent(s)/Patient: Yes * Za Mays PA-C - 03/29/2024 7:51 AM EDT Images from the original note were not included. History of Present Illness Connie Lynch is a 82 year old female who presents to the [facility] for follow up regarding chronic medical problems. Lives with daughter. Concerns: None A flutter / HTN - BP elevated today. 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 On onolmesartan - HCTZ 40 - 25 MG. Rate well controlled on Metoprolol. Also on Eliquis 5 MG BID. Patient denied any side effects from medication. Denies headache, dizziness, CP, SOB and lower extremity edema. Dyslipidemia - Well controlled on Lipitor 20 MG. Last LDL on 03/15/24 was 97. Denied muscle aches and side effects of medication. Osteoporosis - Dexa scan done on 08/05/22 showed T score of -2.6 at left hip. Patient deferred treatment with Fosamax. Patient remains active with weight bearing exercise. Feels balanced on her feet with low chance of fall. Will consider after repeat DEXA scan on 07/2024. History of basal cell - Follows with dermatology. Glaucoma - Follows with [facility]. Daughter reports granddaughter and great granddaughter are currently living with them. She has noticed a significant improvement in the patients mood and memory. Previously had noticed the patient starting to repeat questions. MMSE 25 in office on 09/30/23. Lives with daughter. Physical Exam Vitals: 03/29/24 0756 Temp: 36.1 C (97 F) Pulse: 62 Resp: 20 SpO2: 98% BP: 172/82 BP Readings from Last 3 Encounters: 03/29/24 172/82 12/25/23 122/64 09/30/23 160/74 Physical Exam Vitals and nursing note reviewed. Constitutional: General: She is not in acute distress. Appearance: Normal appearance. She is not ill-appearing, toxic-appearing or diaphoretic. HENT: Head: Normocephalic and atraumatic. Nose: Nose normal. No congestion. Eyes: General: No scleral icterus. Conjunctiva/sclera: Conjunctivae normal. Cardiovascular: Rate and Rhythm: Normal rate and regular rhythm. Heart sounds: Normal heart sounds. No murmur heard. Pulmonary: Effort: Pulmonary effort is normal. No respiratory distress. Breath sounds: Normal breath sounds. No stridor. No wheezing, rhonchi or rales. Musculoskeletal: Right lower leg: No edema. Left lower leg: No edema. Skin: General: Skin is warm and dry. Coloration: Skin is not pale. Findings: No rash. Neurological: Mental Status: She is alert and oriented to person, place, and time. Mental status is at baseline. Psychiatric: Mood and Affect: Mood normal. Behavior: Behavior normal. I have reviewed the following results: CMP, Lipid Panel, CBC, and 25-Hydroxy Vit D Assessment and Plan Atrial flutter, unspecified type (HCC) - Continue Eliquis and metoprolol - Follow up with cardiology as scheduled HTN, goal below 150/90 - amLODIPine Besylate 2.5 MG Oral Tablet (Norvasc); Take 1 Tablet by mouth in the morning. - Olmesartan Medoxomil-HCTZ 40-25 MG Oral Tablet; Take 1 Tablet by mouth in the morning. - CBC WITH WBC DIFFERENTIAL AND ANEMIA REFLEX WORKUP; Future - COMPREHENSIVE METABOLIC PANEL; Future - ALBUMIN / CREATININE RATIO, URINE; Future - Low salt diet - Monitor BP at home Mixed hyperlipidemia - COMPREHENSIVE METABOLIC PANEL; Future - Continue Lipitor - Low fat diet Localized osteoporosis without current pathological fracture - 25-HYDROXY VITAMIN D; Future - Weight bearing exercises - Patient deferred Fosamax History of basal cell carcinoma - Follow up with dermatology Pseudoexfoliation (PXF) glaucoma, severe stage - Follow up with [facility] Wears partial dentures Need for prophylactic vaccination and inoculation against influenza - INFLUENZA VAC., TRIVALENT, HD, PF, 65 AND ABOVE, 0.5 ML IM (FLUZONE HD) Need for vaccination for zoster - Zoster Vac Recomb Adjuvanted 50 MCG/0.5ML Intramuscular Suspension Reconstituted (Shingrix); Inject 0.5 mL into a large muscle now and repeat dose in 60 to 180 days Wrap-Up Follow Up: Return in about 6 months (around 09/27/2024) for Lab 2 -5 prior to next office visit. | For: Lab 2 -5 prior to next office visit | Check-out note: [place] in 2 weeks for BP check Time: I spent a total of 30-39 minutes (exact time 39 mins) on the date of service in preparation, delivery, and documentation of the care provided to Connie Lynch excluding any time spent in the performance of separately billed services. documented in this encounter Nursing Notes * Say Blanca LPN - 03/29/2024 7:56 AM EDT The patient has been properly identified by confirmation of name and date of . Pt here for routine check up. Had labs. documented in this encounter Plan of Treatment Upcoming Encounters Date Type Department Care Team ([facility] Contact Info) Description 04/12/2024 11:20 AM EST Nurse Only Ancillary [address] [place] [phone] Misty, Nurse [facility] [address] [place] [address] 06/16/2024 1:40 PM EST Office Visit Dermatology [facility] [address] [place] [address] Mihaela Shahid PA-C [address] [facility] [place] [address] 09/20/2024 8:00 AM EDT Laboratory [facility] [place] [address] [place] [phone] Misty, Lab [facility] [address] [place] [address] 09/27/2024 8:00 AM EDT Office Visit [facility] [address] [place] [phone] Za Mays PA-C [address] [place] [address] Scheduled Orders Name Type Priority Associated Diagnoses Orde r Schedule CBC WITH WBC DIFFERENTIAL AND ANEMIA REFLEX WORKUP Lab Routine HTN, goal below 150/90 Expected: 09/27/2024 (Approximate), Expires: 03/29/2025 COMPREHENSIVE METABOLIC PANEL Lab Routine HTN, goal below 150/90 Mixed hyperlipidemia Expected: 09/27/2024 (Approximate), Expires: 03/29/2025 25-HYDROXY VITAMIN D Lab Routine Localized osteoporosis without current pathological fracture Expected: 09/27/2024 (Approximate), Expires: 03/29/2025 ALBUMIN / CREATININE RATIO, URINE Lab Routine HTN, goal below 150/90 Expected: 09/27/2024 (Approximate), Expires: 03/29/2025 Health Maintenance Due Date Last Done Comments DTap/Tdap Vaccines (1 - Tdap) 1957 Zoster Vaccines (1 of 2) 1988 Adult Wellness Visit 2004 COVID-19 Vaccine (1 - 2024-25 season) 2024 Depression Screening 03/31/2024 03/31/2023 DXA Scan 08/05/2024 08/05/2022, 04/22/2017 Albumin/Creatinine Ratio 09/21/2026 09/22/2023, 03/03 Pneumococcal Vaccine: 65+ Years Completed 05/19/2020, 08/23/2014, 05/01/2010, Additional history exists VITAMIN D LEVEL ONCE IN A LIFETIME-USE SMARTSET# [id number] Completed 09/22/2023, 03/04/2019 Influenza Vaccine (FLU shot) Completed , 03/31/2023, 03/29/2022, Additional history exists HPV (Gardasil) Vaccine Aged Out No lo nger eligible based on patient's age to complete this topic Hepatitis B Vaccine Aged Out No longe r eligible based on patient's age to complete this topic MENINGOCOCCAL (MENACTRA/MENVEO) Aged Out No longer eligible based on patient's age to complete this topic documented as of this encounter Medical Devices Not on filedocumented as of this encounter Visit Diagnoses Diagnosis Atrial flutter, unspecified type (HCC)- Primary HTN, goal below 150/90 Mixed hyperlipidemia Localized osteoporosis without current pathological fracture History of basal cell carcinoma Personal history of other malignant neoplasm of skin Pseudoexfoliation (PXF) glaucoma, severe stage Wears partial dentures Dental caodaism status Need for prophylactic vaccination and inoculation against influenza Need for vaccination for zoster Need for prophylactic vaccination and inoculation against other viral diseases documented in this encounter Advance Directives Documents on File Type Date Recorded 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
--- OUTSIDE RECORDS SUMMARY | 2024-05-09 14:46 | External Medical Summary | Summary of Care ---
Author Name Unknown Organization [facility] Address [address] [place] [address] Phone [phone] Care Team Providers Care Hand Candle Molder Name Role Phone Za Mays PA-C Primary Care Provider Reason for Visit * Reason Onset Date Comments Blood Pressure Check 04/12/2024 Encounter Details Date Type Department Care Team ([facility] Contact Info) Description 04/12/2024 Telephone Family Practice [address] [phone] Za Mays PA-C [address] [place] [address] Blood Pressure Check Allergies Active Allergy Reactions Criticality Noted Date Comments Fluorouracil Allergy test positive High 07/24/2022 documented as of this encounter (statuses as of 04/19/2024) Medications Apixaban 5 MG Oral Tablet (Eliquis) Take 1 Tablet by mouth in the morning and 1 Tablet before bedtime. 60 Tablet 6 07/03/19 23 Active Artificial Tears 0.1-0.3 % Ophthalmic Solution (Dextran 70-Hypromellose) Use twice daily as needed for dry eyes 30 mL 3 07/03/19 23 Active Hydrocortisone 2.5 % External Ointment Apply to face 2-3 times per day 60 g 1 07/24/19 23 Active Aspirin 81 MG Oral Tablet Chewable Take 1 Tablet by mouth in the morning. Active Atorvastatin Calcium 20 MG Oral Tablet (Lipitor) TAKE 1 TABLET BY MOUTH ONCE DAILY IN THE MORNING 90 Tablet 3 06/03/19 24 Active Fluticasone Propionate 50 MCG/ACT Nasal Suspension (Flonase) Administer 2 Sprays into nostril in the morning. 16 mL 5 09/30/19 24 Active Olmesartan Medoxomil-HCTZ 40-25 MG Oral TabletIndications :HTN, goal below 150/90 Take 1 Tablet by mouth in the morning. 90 Tablet 1 03/29/20 24 Active Metoprolol Succinate ER 25 MG Oral Tablet Extended Release 24 Hour (toPROL XL) Take 1 Tablet by mouth in the morning. 90 Tablet 3 03/29/20 24 Active Zoster Vac Recomb Adjuvanted 50 MCG/0.5ML Intramuscular Suspension Reconstituted (Shingrix)Indicat ions:Need for vaccination for zoster Inject 0.5 mL into a large muscle now and repeat dose in 60 to 180 days 1 Each 1 03/29/20 24 Active amLODIPine Besylate 5 MG Oral Tablet (Norvasc)Indicati ons:HTN, goal below 150/90 Take 1 Tablet by mouth in the morning. 90 Tablet 1 04/12/20 24 Active amLODIPine Besylate 2.5 MG Oral Tablet (Norvasc)Indicati ons:HTN, goal below 150/90 Take 1 Tablet by mouth in the morning. 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 HTN, goal below 150/90 03/17/2018 Hyperlipidemia 03/17/2018 Actinic keratosis 03/21/2009 documented as of this encounter (statuses as of 04/19/2024) Resolved Problems Problem Noted Date Diagnosed Date Resolved Date Benign essential hypertension 09/24/2022 03/29/2024 Osteopenia of right hip 03/17/2018 04/2 09/2022 Amyloidosis, unspecified 07/05/2009 Overview (07/05/2009): 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 Favor Inflammatory Papule at L Oral Commissure 03/21/2009 07/05/2009 documented as of this encounter (statuses as of 04/19/2024) Immunizations Name Administration Dates Next Due Pneumococcal [...] Date Smoking Tobacco: Never Smokeless Tobacco: Never Alcohol Use Standard Drinks/Week Comments Yes 0 [...] No 04/30/2023 [facility] the [facility] source [facility]? (Household - for ages [...] 18 years and over) Not on file Are you (or your family) prudence eless [...] ages 0-17 years) Not on file 04/30/2023 Comments No Sex and Gender Information Value Date Recorded Sex Assigned at Female 04/30/2023 8:19 AM EST Legal Sex Female 7:02 AM EST Gender Identity Female 04/30/2023 8:19 AM EST Sexual Orientation Straight 04/30/2023 8: 19 AM EST documented as of this encounter Miscellaneous Notes * Telephone Encounter - Chelsea Burch LPN - 04/19/2024 3:50 PM EST Spoke with daughter. States pt started the medication a few days after being seen on 04/12. Next bpcheck is scheduled for 05/04 at 9 am. * Telephone Encounter - Za Mays PA-C - 04/12/2024 8:16 PM EST Please call daughter. Blood pressure remains elevated. Would recommend increasing amlodipine to 5 MG. New script sent to pharmacy. However, if patient /daughter wishes, can use up 2.5 mg tabs by taking two each morning to equal 5 MG. Blood pressure check in 2 weeks since amlodipine was increased. * Telephone Encounter - Say Blanca LPN - 04/12/2024 11:48 AM EST Pt presents for BP check with daughter, Alexandra. Pt seen in office two weeks ago, BP elevated at 172/82, HR 62. Amlodipine 2.5 mg added to medications. Taking as prescribed. Tolerating well. BP today: 166/76 HR: 63 Pt uses [facility] pharmacy. Please contact Alexandra at [phone] with any changes. documented in this encounter Plan of Treatment Upcoming Encounters Date Type Department Care Team ([facility] st Contact Info) Description 05/04/2024 9:00 AM EST Nurse Only Ancillary [address] [phone] [facility] [address] [address] 06/16/2024 1:40 PM EST Office Visit Dermatology [facility] [address] [facility] [place] [address] Mihaela Shahid PA-C [address] [facility] [place] [address] 09/20/2024 8:00 AM EDT Laboratory [facility], [address] [phone] [facility] [address] 09/27/2024 8:00 AM EDT Office Visit [address] [phone] Za Mays PA-C [address] [place] [address] Health Maintenance Due Date Last Done Comments DTap/Tdap Vaccines (1 - Tdap) 1957 Zoster Vaccines (1 of 2) 1988 Adult Wellness Visit 2004 COVID-19 Vaccine ( - season) 2024 *BISPHONATE OR OTHER ACCEPTABLE MEDICATION NEEDED FOR OSTEOPOROSIS (REFER TO SMARTSET #1146) 03/31/2024 Depression Screening 03/31/2024 03/31/2023 *NEPHROLOGY REFERRAL DUE TO RESISTANT HTN 04/14/2024 DXA Scan 08/05/2024 08/05/2022, 04/22/2017 Albumin/Creatinine Ratio 09/21/2026 09/22/2023, 03/03 Pneumococcal Vaccine: 65+ Years Completed 05/19/2020, 08/23/2014, 05/01/2010, Additional history exists VITAMIN D LEVEL ONCE IN A LIFETIME-USE SMARTSET# 69861 Completed 09/22/2023, 03/04/2019 Influenza Vaccine (FLU shot) [...] as of this encounter Visit Diagnoses Diagnosis HTN, goal below 150/90- Primary documented in this encounter Advance Directives Documents on File Type Date Recorded Patient Desulphuring Operator Expl anation Advance Directives and Living Will 09/30/2017 LIVING WILL /MEDICAL POWER OF ASSEMBLIES AND INSTALLATIONS INSPECTOR Care Teams Hand Candle Molder Relationship Specialty Start Date End Date Za Mays PA-C [address] [place] [address] PCP - General Physician Field Support Technician 12/10/22 documented as of this encounter
--- OUTSIDE RECORDS SUMMARY | 2024-05-09 14:46 | External Medical Summary | Summary of Care ---
Author Name Unknown Organization [facility] Address [address] [place] [address] Phone [phone] Care Team Providers Care Blacksmith Apprentice Name Role Phone Za Mays PA-C Primary Care Provider Reason for Visit * Reason Comments Blood Pressure Check Encounter Details Date Type Department Care Team ([facility] Contact Info) Description 04/12/2024 11:20 AM EST Nurse Only Ancillary [address] [phone] [place], Nurse [facility] [address] [phone] Blood Pressure Check Allergies Active Allergy Reactions Criticality Noted Date Comments Fluorouracil Allergy test positive High 07/24/2022 documented as of this encounter (statuses as of 04/12/2024) Medications Apixaban 5 MG Oral Tablet (Eliquis) Take 1 Tablet by mouth in the morning and 1 Tablet before bedtime. 60 Tablet 6 3 Active Artificial Tears 0.1-0.3 % Ophthalmic Solution (Dextran 70-Hypromellose) Use twice daily as needed for dry eyes 30 mL 3 3 Active Hydrocortisone 2.5 % External Ointment Apply to face 2-3 times per day 60 g 1 3 Active Aspirin 81 MG Oral Tablet Chewable Take 1 Tablet by mouth in the morning. Active Atorvastatin Calcium 20 MG Oral Tablet (Lipitor) TAKE 1 TABLET BY MOUTH ONCE DAILY IN THE MORNING 90 Tablet 3 4 Active Fluticasone Propionate 50 MCG/ACT Nasal Suspension (Flonase) Administer 2 Sprays into nostril in the morning. 16 mL 5 4 Active amLODIPine Besylate 2.5 MG Oral Tablet (Norvasc)Indicati ons:HTN, goal below 150/90 Take 1 Tablet by mouth in the morning. 90 Tablet 3 4 Active Olmesartan Medoxomil-HCTZ 40-25 MG Oral TabletIndications :HTN, goal below 150/90 Take 1 Tablet by mouth in the morning. 90 Tablet 1 4 Active Metoprolol Succinate ER 25 MG Oral Tablet Extended Release 24 Hour (toPROL XL) Take 1 Tablet by mouth in the morning. 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 HTN, goal below 150/90 03/17/2018 Hyperlipidemia 03/17/2018 Actinic keratosis 03/21/2009 documented as of this encounter (statuses as of 04/12/2024) Resolved Problems Problem Noted Date Diagnosed Date Resolved Date Benign essential hypertension 09/24/2022 03/29/2024 Osteopenia of right hip 03/17/2018 04/2 09/2022 Amyloidosis, unspecified 07/05/2009 Overview (07/05/2009): 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 Favor Inflammatory Papule at L Oral Commissure 03/21/2009 07/05/2009 documented as of this encounter (statuses as of 04/12/2024) Immunizations Name Administration Dates Next Due Pneumococcal [...] AM EST documented as of this encounter Last Filed Vital Signs Vital Sign Reading Time Taken Comments Blood Pressure 166/76 04/12/2024 11:41 AM EST Pulse 63 04/12/2024 11:41 AM EST Temperature - - Respiratory Rate - - Oxygen Saturation - - Inhaled Oxygen Concentration - - Weight - - Height - - Body Mass Index - - documented in this encounter Nursing Notes * Say Blanca LPN - 04/12/2024 11:46 AM EST The patient has been properly identified by confirmation of name and date of . Pt presents with daughter, Alexandra, for BP check. Blood pressure: 166/76 Pulse: 63 Reconciliation of medications performed? Yes Did you take your medications today? Yes Any new problems or side effects of medications? No Any home blood pressure readings to report? No Pharmacy verified? Yes, [facility] Phone number to be reached verified? Yes, (Alexandra's cell) documented in this encounter Plan of Treatment Upcoming Encounters Date Type Department Care Team ([facility] st Contact Info) Description 06/16/2024 1:40 PM EST Office Visit Dermatology [facility] [address] [facility] [place] [address] Mihaela Shahid PA-C [address] [facility] [place] [address] 09/20/2024 8:00 AM EDT Laboratory Laboratory [facility], [facility] [address] [place] [phone] [place], Lab [facility] [address] [place] [address] 09/27/2024 8:00 AM EDT Office Visit [facility] [address] [place] [phone] Za Mays PA-C [address] [place] [address] Health Maintenance Due Date Last Done Comments DTap/Tdap Vaccines (1 - Tdap) 1957 Zoster Vaccines (1 of 2) 1988 Adult Wellness Visit 2004 COVID-19 Vaccine ( - season) 2024 *BISPHONATE OR OTHER ACCEPTABLE MEDICATION NEEDED FOR OSTEOPOROSIS (REFER TO SMARTSET #1146) 03/31/2024 Depression Screening 03/31/2024 03/31/2023 DXA Scan 08/05/2024 08/05/2022, 04/22/2017 Albumin/Creatinine Ratio 09/21/2026 09/22/2023, 03/03 Pneumococcal Vaccine: 65+ Years Completed 05/19/2020, 08/23/2014, 05/01/2010, Additional history exists VITAMIN D LEVEL ONCE IN A LIFETIME-USE SMARTSET# 26579 Completed 09/22/2023, 03/04/2019 Influenza Vaccine (FLU shot) [...] Not on filedocumented as of this encounter Advance Directives Documents on File Type Date Recorded Patient Aqua Ammonia Operator Expl anation Advance Directives and Living Will 09/30/2017 LIVING WILL /MEDICAL POWER OF METEOROLOGY TEACHER Care Teams Blacksmith Apprentice Relationship Specialty Start Date End Date Za Mays PA-C [address] [place] [address] PCP - General Physician Spout Positioner 12/10/22 documented as of this encounter
--- OUTSIDE RECORDS SUMMARY | 2024-05-09 14:46 | External Medical Summary | Summary of Care ---
Author Name Unknown Organization [facility] Address [address] [place] [address] Phone [phone] Care Team Providers Care Cabinet Builder Name Role Phone Za Mays PA-C Primary Care Provider Reason for Visit * Reason Onset Date Comments Blood Pressure Check Pt is here today for BP check since increasing amlodipine 2 weeks ago. Blood Pressure Check 05/04/2024 Encounter Details Date Type Department Care Team ([facility] Contact Info) Description 05/04/2024 9:00 AM EST Nurse Only Ancillary [address] [phone] [place], Nurse [address] [address] Blood Pressure Check (Pt is here today for... Allergies Active Allergy Reactions Criticality Noted Date Comments Fluorouracil Allergy test positive High 07/24/2022 documented as of this encounter (statuses as of 05/04/2024) Medications Apixaban 5 MG Oral Tablet (Eliquis) [...] the morning. 16 mL 5 4 Active Olmesartan Medoxomil-HCTZ 40-25 MG Oral [...] 180 days 1 Each 1 4 Active amLODIPine Besylate 5 MG Oral Tablet (Norvasc)Indicati ons:HTN, goal below 150/90 Take 1 Tablet by mouth in the morning. 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 HTN, goal below 150/90 03/17/2018 Hyperlipidemia 03/17/2018 Actinic keratosis 03/21/2009 documented as of this encounter (statuses as of 05/04/2024) Resolved Problems Problem Noted Date Diagnosed Date Resolved Date Benign essential hypertension 09/24/2022 03/29/2024 Osteopenia of right hip 03/17/2018 04/2 09/2022 Amyloidosis, unspecified 07/05/2009 Overview (07/05/2009): 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 Favor Inflammatory Papule at L Oral Commissure 03/21/2009 07/05/2009 documented as of this encounter (statuses as of 05/04/2024) Immunizations Name Administration Dates Next Due Pneumococcal [...] 04/30/2023 Does the household have a re lar source of income? (Household - for ages [...] Sign Reading Time Taken Comments Blood Pressure 108/70 05/04/2024 9:07 AM EST Pulse 70 05/04/2024 9:07 AM EST Temperature - - Respiratory Rate - - Oxygen Saturation - - Inhaled Oxygen Concentration - - Weight - - Height - - Body Mass Index - - documented in this encounter Progress Notes * Autumn Clarke LPN - 05/04/2024 9:09 AM EST Connie Lynch presented for blood pressure check per provider orders. The blood pressure was obtained using the left arm in the sitting position using a adult cuff. The results were charted in Vital Signs. BP Readings from Last 3 Encounters: 05/04/24 108/70 04/12/24 166/76 03/29/24 172/82 BP 108/70 | Pulse 70 Patient denies headache, pressure in head, dizziness, lightheadedness, chest discomfort, focal neurological symptoms, change in vision, nose bleeds. Did patient take medications today? Yes Patient was referred to PCP for further evaluation. documented in this encounter Plan of Treatment Upcoming Encounters Date Type Department Care Team ([facility] st Contact Info) Description 06/16/2024 1:40 PM EST [facility] [address] [facility] [place] [address] Mihaela Shahid PA-C [address] [facility] [place] [address] 09/20/2024 8:00 AM EDT Laboratory Laboratory Patient Service [address] [phone] [facility] [address] [place] [address] 09/27/2024 8:00 AM EDT Office [facility] [address] [place] [phone] Za Mays PA-C [address] [place] [address] Scheduled Orders Name Type Priority Associated Diagnoses Orde r Schedule BLOOD PRESSURE Procedures Routine HTN, goal below 150/90 Ordered: 05/04/2024 Health Maintenance Due Date Last Done Comments DTap/Tdap Vaccines (1 - Tdap) 1959 Zoster Vaccines (1 of 2) 1988 Adult Wellness Visit 2004 COVID-19 Vaccine ( - 2023- season) 2024 *BISPHONATE OR OTHER ACCEPTABLE MEDICATION NEEDED FOR OSTEOPOROSIS (REFER TO SMARTSET #1146) 03/31/2024 Depression Screening 03/31/2024 03/31/2023 *NEPHROLOGY REFERRAL DUE TO RESISTANT HTN 04/14/2024 DXA Scan 08/05/2024 08/05/2022, 04/22/2017 Albumin/Creatinine Ratio 09/21/2026 09/22/2023, 03/03 Pneumococcal Vaccine: 65+ Years Completed 05/19/2020, 08/23/2014, 05/01/2010, Additional history exists VITAMIN D LEVEL ONCE IN A LIFETIME-USE SMARTSET# 80654 Completed 09/22/2023, 03/04/2019 Influenza Vaccine (FLU shot) [...] Documents on File Type Date Recorded Patient Park Worker Expl anation Advance Directives and Living Will 09/30/2017 LIVING WILL /MEDICAL POWER OF [employer] SALESPERSON Care Teams Cabinet Builder Relationship Specialty Start Date End Date Za Mays PA-C [address] [place], [place] [phone] PCP - General Physician Riprap Worker 12/10/22 documented as of this encounter"
--- OUTSIDE RECORDS SUMMARY | 2024-05-09 14:47 | External Medical Summary ---
Author Name Unknown Address Unknown Organization [id number]:[facility] - [address] [facility] [place] [address] Laboratory Report Ordering Provider Test Date Status KAILEE LOPEZ 03/15/2024 07:10:04 Final Observation Date Value Abnormality Reference (Units ) Status Triglyceride 03/15/2024 07:10:04 80 <=174 ( mg/dL) Final Triglyceride Reference Range s (mg/dL):
<150 Acceptable
150-174 Borderline high
175-499 High
>=500 Very high Cholesterol 03/15/2024 07:10:04 201 Above high normal <200 (mg/dL) Final Total Cholesterol Reference Ranges (mg/dL):
<200 Desirable
200-239 Borderline high
>=240 High HDL 03/15/2024 07:10:04 88 >49 (mg/dL ) Final HDL Cholesterol Reference Ra nges (mg/dL):
>=60 High (Desirable)
<50 Low (Undesirable) For Females
<40 Low (Undesirable) For Males NON-HDL CHOLESTEROL 03/15/2024 07:10:04 113 <=159 (mg/dL) Final Non-HDL Cholesterol Referenc e Range (mg/dL):
<100 Target level for high risk ASCVD patient
<130 Optimal for general population
130-159 Near optimal for general population
160-189 Borderline High
190-219 High
>=220 Very High LDL, (calculated) 03/15/2024 07:10:04 97 <= 129 (mg/dL) Final LDL Cholesterol Reference Ra nges (mg/dL):
<70 Target level for high risk ASCVD patient
<100 Optimal for general population
100-129 Near optimal for general population
130-159 Borderline high
160-189 High
>=190 Very high Performing Location [facility] - [address] [facility] [address]
--- OUTSIDE RECORDS SUMMARY | 2024-05-09 14:47 | External Medical Summary | Summary of Care ---
Author Name Unknown Organization [facility] Address [address] [place] [address] Phone [phone] Care Team Providers Care Dredge Operator Name Role Phone Za Mays PA-C Primary Care Provider Reason for Visit * Reason Comments Outpatient Testing Encounter Details Date Type Department Care Team ([facility] st Contact Info) Description 03/15/2024 7:50 AM EDT Laboratory Laboratory Patient Service [address] [phone] [place], [facility] [address] [place] [id number] HTN, goal below 150/90; Mixed hyperlipidemia Allergies Active Allergy Reactions Criticality Noted Date Comments Fluorouracil Allergy test positive High 07/24/2022 documented as of this encounter (statuses as of 03/15/2024) Medications Medication Sig Dispensed Refills Start Date End Date Status Apixaban 5 MG Oral Tablet (Eliquis) Take 1 Tablet by mouth in the morning and 1 Tablet before bedtime. 60 Tablet 6 07/03/2022 Active Metoprolol Succinate ER 25 MG Oral Tablet Extended Release 24 Hour (toPROL XL) Take 1 Tablet by mouth in the morning. 90 Tablet 3 07/03/2022 Active Artificial Tears 0.1-0.3 % Ophthalmic [...] the morning. 16 mL 5 09/30/2023 Active Alendronate Sodium 70 MG Oral Tablet (Fosamax)Indications :Localized osteoporosis without current pathological fracture Take 1 Tablet by mouth once a week. with 8 oz. water 30 minutes before first meal of the day. Remain upright for 30 min after taking tablet. 15 Tablet 3 09/30/2023 Active Olmesartan Medoxomil-HCTZ 40-25 MG Oral TabletIndications:HT N, goal below 150/90 Take 1 Tablet by mouth in the morning. 90 Tablet 1 09/30/2023 Active Azithromycin 250 MG Oral Tablet (Zithromax Z-Preston)Indications:Pn eumonia of both lower lobes due to infectious organism Take two tablets by mouth on first day, then 1 tablet daily until gone 6 Tablet 12/25/2023 Active Benzonatate 100 MG Oral CapsuleIndications:A cute cough Take 1 Capsule by mouth 3 times a day as needed for Cough. 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 HTN, goal below 150/90 03/17/2018 Hyperlipidemia 03/17/2018 Actinic keratosis 03/21/2009 documented as of this encounter (statuses as of 03/15/2024) Resolved Problems Problem Noted Date Diagnosed Date Resolved Date Osteopenia of right hip 03/17/2018 04/2 09/2022 Amyloidosis, unspecified 07/05/2009 Overview: 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 Favor Inflammatory Papule at L Oral Commissure 03/21/2009 07/05/2009 documented as of this encounter (statuses as of 03/15/2024) Immunizations Name Administration Dates Next Due Pneumococcal Conjugate Vacc, 13 Valent (Prevnar) 05/19/2020,08/23/2014 Pneumococcal Polysaccharide PPV23 (Pneumovax) 05/01/2010,05/01/2004,1938 Seasonal Influenza Virus Vac cine, Unspecified Formulation 03/20/2011,05/01/2010,04/14/2009,04/20 Seasonal Influenza, PF, 6 M & above, [...] No 04/30/2023 [facility] the [facility]? (Household - for ages [...] on file documented as of this encounter Plan of Treatment Upcoming Encounters Date Type Department Care Team ([facility] Contact Info) Description 03/29/2024 8:00 AM EDT Office Visit [address] [phone] Za Mays PA-C [address] [place] [phone] 06/16/2024 1:40 PM EST Office Visit Dermatology State Mauricio Gillespie [address] [place] [phone] Mihaela Shahid PA-C [address] [place] [address] [phone] Pending Results Name Type Priority Associated Diagnoses Date /Time CBC WITH WBC DIFFERENTIAL AND ANEMIA REFLEX WORKUP Lab Routine HTN, goal below 150/90 03/15/2024 7:10 AM EDT COMPREHENSIVE METABOLIC PANEL Lab Routine HTN, goal below 150/90 Mixed hyperlipidemia 03/15/2024 7:10 AM EDT LIPID PANEL WITH DIRECT LDL IF TG IS HIGH Lab Routine Mixed hyperlipidemia 03/15/2024 7:10 AM EDT ANEMIA CBC Lab Routine HTN, goal below 150/90 03/15/2024 7:10 AM EDT DIFFERENTIAL, AUTOMATED Lab Routine HTN, goal below 150/90 03/15/2024 7:10 AM EDT ANEMIA REFLEX CHEMISTRY HOLD Lab Routine HTN, goal below 150/90 03/15/2024 7:10 AM EDT Health Maintenance Due Date Last Done Comments DTap/Tdap Vaccines (1 - Tdap) 1959 Zoster Vaccines (1 of 2) 1988 Adult Wellness Visit 2004 COVID-19 Vaccine ( season) 2024 Influenza Vaccine (FLU shot) (#1) 2024 03/31/2023, 03/29/2022, 03/29/2021, Additional history exists Depression Screening 03/31/2024 03/31/2023 DXA Scan 08/05/2024 08/05/2022, 04/22/2017 Albumin/Creatinine Ratio 09/21/2026 09/22/2023, 03/03 Pneumococcal Vaccine: 65+ Years Completed 05/19/2020, 08/23/2014, 05/01/2010, Additional history exists VITAMIN D LEVEL ONCE IN A LIFETIME-USE SMARTSET# [id number] Completed 09/22/2023, 03/04/2019 HPV (Gardasil) Vaccine Aged Out No lo [...] encounter Visit Diagnoses Diagnosis HTN, goal below 150/90 Mixed hyperlipidemia documented in this encounter Advance Directives Documents on File Type Date Recorded 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
--- OUTSIDE RECORDS SUMMARY | 2024-05-09 14:47 | External Medical Summary | Summary of Care ---
Author Name Unknown Organization [facility] Address [address] [facility] [address] Phone [phone] Care Team Providers Care Automotive Engineering Technician Name Role Phone Za Mays PA-C Primary Care Provider Encounter Details Date Type Department Care Team (Late st Contact Info) Description 03/04/2024 Orders Only PATIENT PORTAL DO NOT DELETE THIS DEPT USED BY [place] [id number] Allergies Active Allergy Reactions Criticality Noted Date Comments Fluorouracil Allergy test positive High 07/24/2022 documented as of this encounter (statuses as of 03/04/2024) Medications Medication Sig Dispensed Refills Start Date [...] as of this encounter (statuses as of 03/04/2024) Active Problems Problem Noted Date Diagnosed Date Atrial flutter 03/31/2023 Benign essential hypertension 09/24/2022 Localized osteoporosis witho ut current pathological fracture 09/24/2022 History of basal cell carcinoma 07/15/2022 Wears partial dentures 09/25/2021 Pseudoexfoliation (PXF) glaucoma, 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 HTN, goal below 150/90 03/17/2018 Hyperlipidemia 03/17/2018 Actinic keratosis 03/21/2009 documented as of this encounter (statuses as of 03/04/2024) Resolved Problems Problem Noted Date Diagnosed Date Resolved Date Osteopenia of right hip 03/17/2018 04/2 09/2022 Amyloidosis, unspecified 07/05/2009 Overview: 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 Favor Inflammatory Papule at L Oral Commissure 03/21/2009 07/05/2009 documented as of this encounter (statuses as of 03/04/2024) Immunizations Name Administration Dates Next Due Pneumococcal [...] Upcoming Encounters Date Type Department Care Team ([facility] Contact Info) Description 03/29/2024 8:00 AM EDT Office Visit Family [facility] [address] [place] [address] Za Mays PA-C [address] [place] [phone] 06/16/2024 1:40 PM EST Office Visit Dermatology [place] [address] [place] [phone] Mihaela Shahid PA-C [address] [place] [phone] Health Maintenance Due Date Last Done Comments DTap/Tdap Vaccines (1 - Tdap) 1959 Zoster Vaccines (1 of 2) 1988 Adult Wellness Visit 2004 COVID-19 Vaccine (1 - 2023- season) 2024 Influenza Vaccine (FLU shot) (#1) 2024 03/31/2023, 03/29/2022, 03/29/2021, Additional history exists Depression Screening 03/31/2024 03/31/2023 DXA Scan 08/05/2024 08/05/2022, 04/22/2017 Albumin/Creatinine Ratio 09/21/2026 09/22/2023, 03/03 Pneumococcal Vaccine: 65+ Years Completed 05/19/2020, 08/23/2014, 05/01/2010, Additional history exists VITAMIN D LEVEL ONCE IN A LIFETIME-USE SMARTSET# [id number] Completed 09/22/2023, 03/04/2019 HPV (Gardasil) Vaccine Aged [...] Documents on File Type Date Recorded Patient Monument Mason Expl anation Advance Directives and Living Will 09/30/2017 LIVING WILL /MEDICAL POWER OF BODY AND FRAME MAN Care Teams Automotive Engineering Technician Relationship Specialty Start Date End Date Za Mays PA-C [address] [place], [place] [address] byrd [phone] PCP - General Physician Printed Circuit Board Drafter 12/10/22 documented as of this encounter
--- OUTSIDE RECORDS SUMMARY | 2024-05-09 14:47 | External Medical Summary ---
Author Name Unknown Address Unknown Organization [id number]:LABORATORY [facility] - [address] [facility] [address]. [facility] [address] Laboratory Report Ordering Provider Test Date Status KAILEE LOPEZ 03/15/2024 07:10:04 Final Observation Date Value Abnormality Reference (Units ) Status WBC, Total 03/15/2024 07:10:04 6.63 4.00-10.8 0 (K/uL) Final RBC 03/15/2024 07:10:04 4.48 3.85-5.15 (M/uL) Final Hemoglobin 03/15/2024 07:10:04 13.7 12.0-15.3 (g/dL) Final Anemia reflex testing trigge rs on a HGB < 12.0 for Females and HGB < 13.0 for Males in accordance with the WHO Anemia Guidelines
Anemia reflex testing triggers on a HGB < 12.0 for Females and HGB < 13.0 for Males in accordance with the WHO Anemia Guidelines HCT 03/15/2024 07:10:04 41.6 36.0-45.2 (%) Final MCV 03/15/2024 07:10:04 92.9 81.5-97.5 (fL) Final MCH 03/15/2024 07:10:04 30.6 27.0-34.0 (pg) Final MCHC 03/15/2024 07:10:04 32.9 32.0-36.0 (g/dL) Final RDW 03/15/2024 07:10:04 13.7 11.5-15.5 (%) Final Platelets 03/15/2024 07:10:04 275 140-400 (K /uL) Final MPV 03/15/2024 07:10:04 10.2 6.6-11.1 ( fL) Final Nucleated erythrocytes/100 leukocytes [Ratio] in Blood by Automated count 03/15/2024 07:10:04 0 <=0 (/100 WBCs) [facility] Performing Location LABORATORY [facility] - [address] [facility] [id number]
--- OUTSIDE RECORDS SUMMARY | 2024-05-09 14:47 | External Medical Summary ---
Author Name Unknown Address Unknown Organization K01:LABORATORY [facility] - [address] [facility] [id number] Laboratory Report Ordering Provider Test Date Status KAILEE LOPEZ 03/15/2024 07:10:04 Final Observation Date Value Abnormality Reference (Units ) Status SYNC LEUKOCYTES IN BLOOD BY AUTOMATED COUNT 03/15/2024 07:10:04 6.63 4.00-10.80 (K/uL) Final Segs 03/15/2024 07:10:04 49.1 40.0-75.0 (%) Final Lymphs % 03/15/2024 07:10:04 40.9 18.0-42.0 (%) Final Monos 03/15/2024 07:10:04 8.3 1.0-11.0 (%) Final Eosinophils 03/15/2024 07:10:04 1.1 0.0-6.0 (%) Final Basos 03/15/2024 07:10:04 0.3 0.0-2.0 (%) Final Immature Granulocyte, Percent 03/15/2024 07:10:04 0.3 0.0-2.0 (%) Final Absolute Segs 03/15/2024 07:10:04 3.26 1.80-7.70 (K/uL) Final Lymphs, absolute 03/15/2024 07:10:04 2.71 1.00-4.80 (K/ul) Final Monos, Abs 03/15/2024 07:10:04 0.55 0.00-1.10 (K/uL) Final Eos, Abs 03/15/2024 07:10:04 0.07 0.00-0.70 (K/uL) Final Basos, Abs 03/15/2024 07:10:04 0.02 0.00-0.20 (K/uL) Final Immature Granulocytes, Number 03/15/2024 07:10:04 0.02 0.00-0.20 (K/uL) Final Performing Location LABORATORY [facility] - [address] [facility] [id number]
--- OUTSIDE RECORDS SUMMARY | 2024-05-09 14:47 | External Medical Summary | Summary of Care ---
Author Name Unknown Organization [facility] Address [address] [place] [address] Phone [phone] Care Team Providers Care Cytogenetic Technician Name Role Phone Za Mays PA-C Primary Care Provider Reason for Visit * Reason Comments eRx-Medication Refill Encounter Details Date Type Department Care Team ([facility] Contact Info) Description 03/19/2024 Refill Family [address] [phone] Za Mays PA-C [address] [place] [phone] HTN, goal below 150/90 Allergies Active Allergy Reactions Criticality Noted Date [...] the morning. 16 mL 5 09/30/2023 Active Metoprolol Succinate ER 25 MG Oral Tablet Extended Release 24 Hour (toPROL XL) Take 1 Tablet by mouth in the morning. 90 Tablet 3 07/03/2022 4 Discontinue d(Refill) Alendronate Sodium 70 MG Oral Tablet (Fosamax)Indicatio ns:Localized osteoporosis without current pathological fracture Take 1 Tablet by mouth once a week. with 8 oz. water 30 minutes before first meal of the day. Remain upright for 30 min after taking tablet. 15 Tablet 3 09/30/2023 4 Discontinue d(Patient preference/ discontinua tion) Olmesartan Medoxomil-HCTZ 40-25 MG Oral TabletIndications: HTN, goal below 150/90 Take 1 Tablet by mouth in the morning. 90 Tablet 1 09/30/2023 4 Discontinue d(Refill) Azithromycin 250 MG Oral Tablet (Zithromax Z-Preston)Indications: Pneumonia of both lower lobes due to infectious organism Take two tablets by mouth on first day, then 1 tablet daily until gone 6 Tablet 12/25/2023 4 Discontinue d(Medicatio n List Clean Up) Benzonatate 100 MG Oral CapsuleIndications :Acute cough Take 1 Capsule by mouth 3 [...] No 04/30/2023 Does the household have a [facility] source of income? (Household - for ages [...] on file documented as of this encounter Miscellaneous Notes * Telephone Encounter - Iveth Abreu RPh - 03/21/2024 6:44 AM EDT OV 03/29/24 Postponed until seen Thank You, Iveth Abreu [facility] Clinical Pharmacist [facility] [phone] [id number] 03/21/2024, 6:44 AM documented in this encounter Plan of Treatment Upcoming Encounters Date Type Department Care Team (Late st Contact Info) Description 06/16/2024 1:40 PM EST Office Visit Dermatology [facility] [place] [address] [facility] [address] [place] [address] Mihaela Shahid PA-C [address] [facility] [place] [address] Health Maintenance Due Date Last Done Comments DTap/Tdap Vaccines (1 - Tdap) 1957 Zoster Vaccines (1 of 2) 1988 Adult Wellness Visit 2004 COVID-19 Vaccine (1 - 2023- season) 2024 Depression Screening 03/31/2024 03/31/2023 DXA Scan 08/05/2024 08/05/2022, 04/22/2017 Albumin/Creatinine Ratio 09/21/2026 09/22/2023, 03/03 Pneumococcal Vaccine: 65+ Years Completed 05/19/2020, 08/23/2014, 05/01/2010, Additional history exists VITAMIN D LEVEL ONCE IN A LIFETIME-USE SMARTSET# [id number] Completed 09/22/2023, 03/04/2019 Influenza Vaccine (FLU shot) [...] Visit Diagnoses Diagnosis HTN, goal below 150/90 documented in this encounter Advance Directives Documents on File Type Date Recorded 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
--- NOTE | 2024-05-09 15:08 | Hospitalist Progress Note ---
Date of Service May 09, 2024 Assessment & Plan (1) Atrial flutter with rapid ventricular response: (2) Pneumonia: (3) Hypokalemia: (4) HTN (hypertension): (5) Dyslipidemia: Plan: Ms. Lynch is an 83 year old female with PMH HTN, dyslipidemia, atrial flutter anticoagulated on Eliquis presented to ER for URI symptoms x 1 week and tachycardia. Patient treated with IV antibiotics thus far with subjective improvement. She has history of pneumonias exacerbating her a fib/flutter. CXR and abd/p CT evaluated from last years in EMR linek with this ongoing peribronchial bandlike opacities +From CT ab/p 04/30: FINDINGS: Lungs: The mild bibasilar bronchiectasis with scattered peribronchial bandlike in nodular consolidative opacities likely secondary to bibasilar pneumonia and subsegmental atelectasis. There is also some patchy bronchiolitis at the lung bases. +CXR 2022 IMPRESSION IMPRESSION: 1. Scattered bibasilar opacities in part secondary to subsegmental atelectasis with superimposed pneumonia to be excluded. 2. Nonspecific ill-defined opacity projecting just above the left hilum for which follow-up nonemergent CT chest recommended for clarification. +FINDINGS Lines/Tubes: None. Lungs/Pleura: There are bibasilar opacities correlating with prior areas of airspace disease on the 04/30/2023 CT as well as a new area of airspace disease in the right mid-upper lung zone. Overall, favor this is thought to reflect persistent acute on chronic infection noting the acute-appearing airspace disease and superimposed bronchiectasis seen on review of priors. No pleural effusions. No discernible pneumothorax. Heart/Mediastinum: Size and contours are within normal limits. Bones/Soft Tissues: No acute osseous finding. Upper Abdomen: Visualized portions are unremarkable. Impression: IMPRESSION Multifocal airspace disease, suspect acute on chronic pneumonia, with marginal worsening from 04/30/2023. Discussed with Pulm off line about Mycobacterium Avium Complex. AFB ordered . Will need PCP follow up for OP pulm management and repeat CT chest in 6 weeks. Otherwise cover for pseudomonas -Patient did not tolerate levaquin, however will trial cipro for pseudomonas coverage. #Pneumonia, RLL, community acquired WBC: 18. Procalcitonin:0.1, Lactate WNL. Negative respiratory BioFire panel. D- dimer: 1400 CXR: Right basilar airspace opacity which favors pneumonia CTA Chest: Cardiomegaly without pulmonary emboli identified. Patchy right lung/right lower lobe predominant opacities suggestive of pneumonia versus aspiration pneumonitis. Bilateral tree-in-bud nodules compatible with an infectious or inflammatory bronchiolitis. 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 Mediastinal and right hilar lymphadenopathy is likely reactive. In ER given Rocephin, doxycycline Transitioned to Cefepime, Doxy Supplemental oxygen as needed Guaifenesin Incentive spirometry, flutter valve, Mucinex, Xopenex nebs as needed leukcytosis resolved -Transition to levaquin--did not tolerate 2/2 gi, will start Ciprofloxacin bid in am and assess #Aflutter RVR: #Hypokalemia History atrial flutter anticoagulated on Eliquis Initial EKG at 11:38 AM: Atrial flutter, RVR rate 148, nonspecific ST and T wave changes. Initial ER presentation patient afebrile, P: 137, R: 20, BP 114/68, 95% on room air In ER given 500 mL NSS, initial Cardizem 10 mg IV bolus followed by diltiazem 20 mg IV bolus. KCl 40 mEq p.o., 1K rider, During ER course patient converted to normal sinus rhythm with heart rates in the 80s. Repeat EKG at 2:32 PM normal sinus rhythm, rate 74 Suspect rapid aflutter secondary to underlying illness and electrolyte abnormality Continue to replace potassium. Goal potassium of 4 or greater. Magnesium level pending Troponin: 29-->18 Suspect demand ischemia in setting of rapid aflutter Trend troponin Echo: with pulm HTN possible 2/2 lung disease, EF 60-65% Continue home metoprolol succinate, Eliquis CTM on tele #HTN Continue home amlodipine, metoprolol succinate Hold olmesartan, HCTZ #Dyslipidemia Continue home atorvastatin DVT Prophylaxis On Eliquis dispo tomorrow if able to tolerate po Full Code as per discussion with pt [facility] Admission and Anticipated Discharge Date Admission Date: May 07, 2024 Subjective NAEO Doing great this morning, however, Josh didn't settle on her stomach well and not feeling comfortable for discharge Discussed trying alternative in am to see how it settles, patient agreed Physical Exam Constitutional: WD/WN, vitals as above Respiratory: occasional rhonchi, cleared with cough Cardiovascular: RRR, no murmur, no edema Results & Data Results & Data Vital Signs (Past 12 Hours) Vital Signs Temp Pulse Resp BP Pulse Ox O2 Del Method 05/09/24 11:25 36.7 C 71 18 133/72 94 Room Air 05/09/24 07:18 36.7 C 82 17 128/71 93 Room Air Laboratory Results Short CBC 05/09/24 Range/Units 05:31 WBC 10.27 (4.8-10.8) K/ul Hgb 10.9 L (12.0-16.0) g/dl Hct 32.7 L (37.0-47.0) % Plt Count 300 (130-400) K/uL BMP 05/09/24 05:31 Sodium 133 L Potassium 4.2 Chloride 98 Carbon Dioxide 29 BUN 11 Creatinine 0.67 Glucose 110 H Calcium 9.0 Medications Administered Home Medications Medication Instructions Recorded Confirmed Last Taken fluticasone propionate 50 2 spray intranasal DAILY PRN nasal 04/02/22 05/07/24 Unknown mcg/actuation nasal congestioni spray,suspension (Flonase Allergy Relief) apixaban 5 mg tablet 5 mg PO BID #180 tabs 07/04/23 05/07/24 05/07/24 aspirin 81 mg tablet,delayed 81 mg PO DAILY #90 tabs 07/04/23 05/07/24 05/07/24 release (Adult Aspirin Regimen) atorvastatin 20 mg tablet 20 mg PO DAILY #90 tabs 07/04/23 05/07/24 05/07/24 metoprolol succinate 25 mg 25 mg PO DAILY #90 tabs 07/04/23 05/07/24 05/07/24 tablet,extended release 24 hr albuterol sulfate 90 mcg/actuation 2 puff inhalation Q6H PRN sob 05/07/24 05/07/24 Unknown aerosol inhaler amlodipine 5 mg tablet 5 mg PO QAM 05/07/24 05/07/24 05/07/24 dextran 70-hypromellose (PF) 0.1 2 drp ophthalmic (eye) BID PRN Dry 05/07/24 05/07/24 Unknown %-0.3 % eye drops in a dropperette Eye(S) (Artificial Tears (PF)) olmesartan 40 1 tab PO QAM 05/07/24 05/07/24 05/07/24 mg-hydrochlorothiazide 25 mg tablet Active Medications Generic Name Dose Route Start Last Admin Trade Name Freq PRN Reason Stop Dose Admin Amlodipine Besylate 5 mg 05/08/24 09:00 05/09/24 08:15 Amlodipine Besylate 5 Mg Tab PO 06/07/24 08:59 5 mg QAM BERHANE Administration Apixaban 5 mg 05/07/24 21:00 05/09/24 08:15 Apixaban 5 Mg Tablet PO 06/06/24 20:59 5 mg BID BERHANE Administration Aspirin 81 mg 05/08/24 09:00 05/09/24 08:15 Aspirin 81 Mg Ectab PO 06/07/24 08:59 81 mg DAILY BERHANE Administration Atorvastatin Calcium 20 mg 05/08/24 09:00 05/09/24 08:15 Atorvastatin 20 Mg Tab PO 06/07/24 08:59 20 mg DAILY BERHANE Administration Guaifenesin 600 mg 05/07/24 21:00 05/09/24 08:15 Guaifenesin 600 Mg Tabcr PO 06/06/24 20:59 600 mg Q12 BERHANE Administration Metoprolol Succinate 25 mg 05/08/24 09:00 05/09/24 08:15 Metoprolol Succ 25mg Ext Rel Tab PO 06/07/24 08:59 25 mg DAILY BERHANE Administration
[2024-05-09] MEDS: ONDANSETRON INJ 2 MG/ML 2 ML VIAL IV PRN (16:27)
[2024-05-10 06:34] LABS: Hematocrit (blood only) 33.2 % (37.0-47.0); Mean Corpuscular Hemoglobin 29.3 pg (25.0-34.0); Mean Corpuscular Hgb Conc 33.1 g/dL (32.0-36.0); Mean Corpuscular Volume 88.3 fL (80.0-100.0); Mean Platelet Volume 9.3 fL (9.4-12.4); Platelet Count 292 K/uL (130-400); RDW Coefficient of Variation 12.6 % (11.5-14.5); RDW Standard Deviation 40.7 fL (36.4-46.3); Red Blood Count 3.76 M/uL (4.20-5.40); White Blood Count 9.11 K/ul (4.8-10.8)
[2024-05-10 06:39] LABS: BUN Creatinine Ratio 9.6 (10-20); Creatinine Clr Calc Pharmacy 51.4 ml/min; Potassium 4.4 mmol/L (3.5-5.1)
[2024-05-10 08:10] VITALS: TEMP 98.1
[2024-05-10] MEDS: CIPROFLOXACIN 500 MG TAB PO SCH (08:37)
[2024-05-10 12:14] VITALS: BP 128/73; PULSE 74; RESP 20; O2SAT 94
--- NOTE | 2024-05-10 13:33 | Discharge Summary ---
Discharge Summary Date of Service May 10, 2024 Principal Dx & Hospital Course #1 = Principal Diagnosis (1) Atrial flutter with rapid ventricular response: (2) Pneumonia: (3) Hypokalemia: (4) HTN (hypertension): (5) Dyslipidemia: Ms. Lynch is an 83 year old female with PMH HTN, dyslipidemia, atrial flutter anticoagulated on Eliquis presented to ER for URI symptoms x 1 week and tachycardia. Patient treated with IV antibiotics thus far with subjective improvement. She has history of pneumonias exacerbating her a fib/flutter. CXR and abd/p CT evaluated from last years in EMR linek with this ongoing peribronchial bandlike opacities +From CT ab/p 04/30: FINDINGS: Lungs: The mild bibasilar bronchiectasis with scattered peribronchial bandlike in nodular consolidative opacities likely secondary to bibasilar pneumonia and subsegmental atelectasis. There is also some patchy bronchiolitis at the lung bases. +CXR 2022 IMPRESSION IMPRESSION: 1. Scattered bibasilar opacities in part secondary to subsegmental atelectasis with superimposed pneumonia to be excluded. 2. Nonspecific ill-defined opacity projecting just above the left hilum for which follow-up nonemergent CT chest recommended for clarification. +FINDINGS Lines/Tubes: None. Lungs/Pleura: There are bibasilar opacities correlating with prior areas of airspace disease on the 04/30/2023 CT as well as a new area of airspace disease in the right mid-upper lung zone. Overall, favor this is thought to reflect persistent acute on chronic infection noting the acute-appearing airspace disease and superimposed bronchiectasis seen on review of priors. No pleural effusions. No discernible pneumothorax. Heart/Mediastinum: Size and contours are within normal limits. Bones/Soft Tissues: No acute osseous finding. Upper Abdomen: Visualized portions are unremarkable. Impression: IMPRESSION Multifocal airspace disease, suspect acute on chronic pneumonia, with marginal worsening from 04/30/2023. Discussed with Pulm off line about Mycobacterium Avium Complex. AFB pending. Will need PCP follow up for OP pulm management and repeat CT chest in 6 weeks. Otherwise cover for pseudomonas -Patient did not tolerate levaquin, however will trial cipro for pseudomonas coverage On day of discharge, patient reported doing very well. Denies any stomach upset or sob. Patient ambulating at baseline and daughter at bedside to take patient h ome. #Pneumonia, RLL, community acquired WBC: 18. Procalcitonin:0.1, Lactate WNL. Negative respiratory BioFire panel. D- dimer: 1400 CXR: Right basilar airspace opacity which favors pneumonia CTA Chest: Cardiomegaly without pulmonary emboli identified. Patchy right lung/right lower lobe predominant opacities suggestive of pneumonia versus aspiration pneumonitis. Bilateral tree-in-bud nodules compatible with an infectious or inflammatory bronchiolitis. 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 Mediastinal and right hilar lymphadenopathy is likely reactive. In ER given Rocephin, doxycycline Transitioned to Cefepime, Doxy Supplemental oxygen as needed Guaifenesin Incentive spirometry, flutter valve, Mucinex, Xopenex nebs as needed leukcytosis resolved -Transition to levaquin--did not tolerate 2/2 gi -Continue cipro floxacin for pseudomonal coverage for 5 more days #Aflutter RVR: #Hypokalemia History atrial flutter anticoagulated on Eliquis Initial EKG at 11:38 AM: Atrial flutter, RVR rate 148, nonspecific ST and T wave changes. Initial ER presentation patient afebrile, P: 137, R: 20, BP 114/68, 95% on room air In ER given 500 mL NSS, initial Cardizem 10 mg IV bolus followed by diltiazem 20 mg IV bolus. KCl 40 mEq p.o., 1K rider, During ER course patient converted to normal sinus rhythm with heart rates in the 80s. Repeat EKG at 2:32 PM normal sinus rhythm, rate 74 Suspect rapid aflutter secondary to underlying illness and electrolyte abnormality Continue to replace potassium. Goal potassium of 4 or greater. Magnesium level pending Troponin: 29-->18 Suspect demand ischemia in setting of rapid aflutter Trend troponin Echo: with pulm HTN possible 2/2 lung disease, EF 60-65% Continue home metoprolol succinate, Eliquis CTM on tele #HTN Continue home amlodipine, metoprolol succinate Hold olmesartan, HCTZ #Dyslipidemia Continue home atorvastatin Notes For Next Care Provider Imaging with findings suggestive of chronic MAC infection AFB sputum pending Spoke to pulm--refer to OP pulm, follow up on AFB, and repeat CT imaging in 6-8 weeks Medication Changes From Visit Ciprofloxacin bid x 5 more days Admission HPI Per Admitting Provider Patient is 83 year old female with PMH HTN, dyslipidemia, atrial flutter anticoagulated on Eliquis presented to ER for URI symptoms x 1 week and tachycardia today. Per outpatient chart review seen in clinic today for URI symptoms and found to be tachycardic and referred to ER. Patient states for past week has had nasal and chest congestion, cough. Last several days cough has become productive of green-yellow sputum. Reports last couple days feeling s hort of breath with exertion. Denies chest pain. She states she faintly felt like her heart was racing but she did not feel was not significant. Has been feeling cold at home. Has not been taking her temperature at home. Denies chills. States feels a little lightheaded past couple days. Denies syncope. Reports generalized weakness and feels wiped out. Decreased oral intake secondary to decreased appetite. Deneis vomiting or diarrhea. Has been using mucinex at home without much relief. Denies pseudoephedrine products. Denies SOMMERS, neck pain, CP, hemoptysis, abdominal pain, paresthesias, extremity edema, rashes, urinary symptoms. Admission Exam Per Admitting Provider General: no distress, WDWN Head: normocephalic, atraumatic Eyes: conjunctiva non-injected, anicteric ENT: normal inspection external ears, nose, mucous membranes mildly dry Neck: supple, trachea midline Lungs: no respiratory distress, coarse breath sounds throughout CV: RRR, rate 84, +murmur, no pretibial edema Abd: normal BS, soft, non-tender Ext: no cyanosis, no calf tenderness Neuro: A&O x 3, no focal deficits noted, normal affect Skin: warm, dr Discharge Exam Constitutional WD/WN, vitals as above Respiratory normal respiratory effort, lungs clear to auscultation Cardiovascular RRR, no murmur, no edema Updated Medication List Medication Instructions Recorded Confirmed Type fluticasone propionate 50 2 spray intranasal DAILY PRN nasal 04/02/22 05/07/24 History mcg/actuation nasal congestioni spray,suspension (Flonase Allergy Relief) apixaban 5 mg tablet 5 mg PO BID #180 tabs 07/04/23 05/07/24 Rx aspirin 81 mg tablet,delayed 81 mg PO DAILY #90 tabs 07/04/23 05/07/24 Rx release (Adult Aspirin Regimen) atorvastatin 20 mg tablet 20 mg PO DAILY #90 tabs 07/04/23 05/07/24 Rx metoprolol succinate 25 mg 25 mg PO DAILY #90 tabs 07/04/23 05/07/24 Rx tablet,extended release 24 hr albuterol sulfate 90 mcg/actuation 2 puff inhalation Q6H PRN sob 05/07/24 05/07/24 History aerosol inhaler amlodipine 5 mg tablet 5 mg PO QAM 05/07/24 05/07/24 History dextran 70-hypromellose (PF) 0.1 2 drp ophthalmic (eye) BID PRN Dry 05/07/24 05/07/24 History %-0.3 % eye drops in a dropperette Eye(S) (Artificial Tears (PF)) olmesartan 40 1 tab PO QAM 05/07/24 05/07/24 History mg-hydrochlorothiazide 25 mg tablet ciprofloxacin HCl 500 mg tablet 500 mg PO BID 5 days #10 tabs 05/10/24 Rx Hospital Stay Data Diagnostic Imagining Performed 05/07/24 13:10 CT angio chest PE protocol Stat Pending Results Patient Have Any Pending Studies at Discharge: No Discharge Instructions Given to Patient (Per Discharging Provider) You were admitted with pneumonia. You improved with IV antibiotics . You were transitioned to antibiotics by mouth and will complete 5 more days. -Ciprofloxacin 500mg two times a day, your next dose is this evening You need to follow up with your PCP to discuss a referral to a plant and machinery valuer and to follow up on sputum cultures obtained in the hospital (they yoel take 6 weeks to grow) You CT reveal some changes consistent with a slow growing infection that requires confirmation prior to starting treatment. Total Time Total Time Spent Total Time Spent (In Minutes): 45
--- NOTE | 2024-05-24 14:36 | Emergency Department Note ---
ED Provider Note History of Present Illness Chief Complaint: Abnormal Labs/Diagnostic Testing Stated Complaint: ABN EKG, POSSIBLE INFECTION, A-FLUTTER Time Seen by Provider: 05/07/24 11:45 Source: patient Mode of arrival: ambulatory Limitations: no limitations Patient is an 83-year-old female that presents to the emergency department with complaints of being in a flutter, fatigue, nasal drainage, and cough. Patient seen at her primary care physician today for same symptoms and after doing an EKG they advised her to go to the emergency department. Patient states that when she has had the symptoms in the past that she typically has pneumonia. Patient denies any chest pain, shortness of breath or abdominal pain. Home Medications Medication Instructions Recorded Confirmed Type fluticasone propionate 50 2 spray intranasal DAILY PRN nasal 04/02/22 05/07/24 History mcg/actuation nasal congestioni spray,suspension (Flonase Allergy Relief) apixaban 5 mg tablet 5 mg PO BID #180 tabs 07/04/23 05/07/24 Rx aspirin 81 mg tablet,delayed 81 mg PO DAILY #90 tabs 07/04/23 05/07/24 Rx release (Adult Aspirin Regimen) atorvastatin 20 mg tablet 20 mg PO DAILY #90 tabs 07/04/23 05/07/24 Rx metoprolol succinate 25 mg 25 mg PO DAILY #90 tabs 07/04/23 05/07/24 Rx tablet,extended release 24 hr albuterol sulfate 90 mcg/actuation 2 puff inhalation Q6H PRN sob 05/07/24 05/07/24 History aerosol inhaler amlodipine 5 mg tablet 5 mg PO QAM 05/07/24 05/07/24 History dextran 70-hypromellose (PF) 0.1 2 drp ophthalmic (eye) BID PRN Dry 05/07/24 05/07/24 History %-0.3 % eye drops in a dropperette Eye(S) (Artificial Tears (PF)) olmesartan 40 1 tab PO QAM 05/07/24 05/07/24 History mg-hydrochlorothiazide 25 mg tablet Allergies Allergy/AdvReac Type Severity Reaction Status Date / Time fluorouracil [From Efudex] Allergy Severe Verified 01/15/24 09:28 Past Med/Surg History Problem List (Updated 05/28/24 @ 12:02 by NELLA Valenzuela) Hypokalemia Pneumonia (Acute) Atrial flutter with rapid ventricular response HTN (hypertension) Dyslipidemia Benign essential hypertension Atrial flutter (Acute) Surgical History History of hysterectomy Family History Other Dementia Social History Smoking Status: Never smoker Second Hand Exposure: No; Do You Dip or Chew Tobacco: No; Hx Alcohol Use: No Hx Substance Use: No Preferred Language: Spanish Communication Ability: Effective 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 GENERAL -83-year-old female appearing their stated age, who is in no acute distress. Communicates well with provider and answers questions appropriately. Patient's daughter is at her bedside. HEAD - Normocephalic, Atraumatic. EYES - PERRL with EOMI bilaterally. Sclera anicteric. Conjunctiva pink and moist with no injection noted. EARS - No deformities of external structures noted on gross examination bilaterally. NOSE - Midline and without cyanosis. No epistaxis or purulent drainage noted. NECK - Neck with FROM. Supple to palpation. No lymphadenopathy noted. LUNGS - Chest wall symmetric without accessory muscle use, intercostals retractions, or central cyanosis. Normal vesicular breath sounds CTA B/L. No wheezes, rales, or rhonchi appreciated. CARDIAC - Irregular rhythm, tachycardic rate. No murmur, rubs, or gallops appreciated. EXTREMITIES - No edema present. +5/5 strength noted in UE/LE bilaterally. NEUROLOGIC -Sensory intact to light touch throughout. PSYCH - A&Ox3 and cooperates fully with examiner. Pt is very pleasant and interacts well with examiner Course Administered Medications Discontinued Medications Amlodipine Besylate (Amlodipine Besylate 5 Mg Tab) 5 mg PO QAM [facility] Stop: 06/07/24 08:59 Last Admin: 05/10/24 08:36 Dose: 5 mg Documented By: Admin: 05/09/24 08:15 Dose: 5 mg Documented By: Admin: 05/08/24 08:29 Dose: 5 mg Documented By: WALLY Apixaban (Apixaban 5 Mg Tablet) 5 mg PO BID [facility] Stop: 06/06/24 20:59 Last Admin: 05/10/24 08:36 Dose: 5 mg Documented By: Admin: 05/09/24 21:15 Dose: 5 mg Documented By: Admin: 05/09/24 08:15 Dose: 5 mg Documented By: Admin: 05/08/24 20:05 Dose: 5 mg Documented By: Admin: 05/08/24 08:29 Dose: 5 mg Documented By: Admin: 05/07/24 21:16 Dose: 5 mg Documented By: JESSI Aspirin (Aspirin 81 Mg Ectab) 81 mg PO DAILY [facility] Stop: 06/07/24 08:59 Last Admin: 05/10/24 08:36 Dose: 81 mg Documented By: Admin: 05/09/24 08:15 Dose: 81 mg Documented By: Admin: 05/08/24 08:29 Dose: 81 mg Documented By: WALLY Atorvastatin Calcium (Atorvastatin 20 Mg Tab) 20 mg PO DAILY [facility] Stop: 06/07/24 08:59 Last Admin: 05/10/24 08:37 Dose: 20 mg Documented By: Admin: 05/09/24 08:15 Dose: 20 mg Documented By: Admin: 05/08/24 08:29 Dose: 20 mg Documented By: WALLY Ciprofloxacin (Ciprofloxacin 500 Mg Tab) 500 mg PO BID [facility]; Protocol Stop: 05/15/24 08:59 Last Admin: 05/10/24 08:37 Dose: 500 mg Documented By: WALLY Diltiazem HCl (Diltiazem Hcl 5 Mg/Ml 5 Ml Vial) 10 mg IV NOW STA Stop: 05/07/24 12:07 Last Admin: 05/07/24 12:11 Dose: 10 mg Documented By: BRI Co-signed By: KAREEM Diltiazem HCl (Diltiazem Hcl 5 Mg/Ml 5 Ml Vial) 20 mg IV NOW STA Stop: 05/07/24 12:51 Last Admin: 05/07/24 12:58 Dose: 20 mg Documented By: BRI Co-signed By: KAREEM Doxycycline Hyclate (Doxycycline Hyclate 100 Mg Cap) 100 mg PO Q12H [facility] Stop: 05/13/24 06:59 Last Admin: 05/09/24 08:15 Dose: 100 mg Documented By: Admin: 05/08/24 20:07 Dose: 100 mg Documented By: Admin: 05/08/24 06:00 Dose: 100 mg Documented By: KRT Guaifenesin (Guaifenesin 600 Mg Tabcr) 600 mg PO Q12 [facility] Stop: 06/06/24 20:59 Last Admin: 05/10/24 08:37 Dose: 600 mg Documented By: Admin: 05/09/24 21:15 Dose: 600 mg Documented By: Admin: 05/09/24 08:15 Dose: 600 mg Documented By: Admin: 05/08/24 20:07 Dose: 600 mg Documented By: Admin: 05/08/24 08:29 Dose: 600 mg Documented By: Admin: 05/07/24 21:16 Dose: 600 mg Documented By: EJSSI Sodium Chloride (Nss) 500 mls @ 999 mls/hr IV .Q31M ONE Stop: 05/07/24 13:27 Last Infusion: 05/07/24 13:59 Dose: Infused Documented By: Admin: 05/07/24 13:02 Dose: 999 mls/hr Documented By: KAREEM Potassium Chloride (K Wilder / Wtr) 10 meq in 100 mls @ 100 mls/hr IV ONE ONE; Protocol Stop: 05/07/24 16:49 Last Infusion: 05/07/24 18:39 Dose: Infused Documented By: Admin: 05/07/24 17:08 Dose: 100 mls/hr Documented By: CHELLY Ceftriaxone Sodium (Rocephin) 1,000 mg in 50 mls @ 100 mls/hr IV NOW STA Stop: 05/07/24 16:19 Last Infusion: 05/07/24 17:15 Dose: Infused Documented By: Admin: 05/07/24 16:33 Dose: 100 mls/hr Documented By: CHELLY Doxycycline Hyclate 100 mg/ (Dextrose) 100 mls @ 50 mls/hr IV NOW STA Stop: 05/07/24 17:49 Last Infusion: 05/07/24 20:12 Dose: Infused Documented By: Admin: 05/07/24 17:09 Dose: 50 mls/hr Documented By: CHELLY Potassium Chloride (K Wilder / Wtr) 10 meq in 100 mls @ 100 mls/hr IV Q1H [facility]; Protocol Stop: 05/07/24 18:59 Last Infusion: 05/08/24 00:11 Dose: Infused Documented By: Admin: 05/07/24 20:27 Dose: 100 mls/hr Documented By: Infusion: 05/07/24 19:44 Dose: Infused Documented By: Admin: 05/07/24 18:44 Dose: 100 mls/hr Documented By: ETTA Magnesium Sulfate/Dextrose (Magnesium Sulfate / D5w) 1 gm in 100 mls @ 50 mls/hr IV ONE ONE Stop: 05/07/24 22:42 Last Infusion: 05/08/24 00:11 Dose: Infused Documented By: Admin: 05/07/24 21:11 Dose: 50 mls/hr Documented By: JESSI Cefepime HCl (Maxipime 2000mg) 2,000 mg in 20 mls @ 5 mls/min IV Q12H [facility]; Protocol Stop: 05/13/24 13:59 Last Admin: 05/09/24 03:17 Dose: 5 mls/min Documented By: Admin: 05/08/24 14:01 Dose: 5 mls/min Documented By: WALLY Ioversol (Optiray 320 125ml) 119 ml IV ONCE ONE Stop: 05/07/24 13:42 Last Admin: 05/07/24 13:41 Dose: 119 ml Documented By: NUBIA Levofloxacin (Levofloxacin 750 Mg Tab) 750 mg PO DAILY@1100 [facility]; Protocol Stop: 05/14/24 10:59 Last Admin: 05/09/24 11:12 Dose: 750 mg Documented By: WALLY Metoprolol Succinate (Metoprolol Succ 25mg Ext Rel Tab) 25 mg PO DAILY [facility] Stop: 06/07/24 08:59 Last Admin: 05/10/24 08:37 Dose: 25 mg Documented By: Admin: 05/09/24 08:15 Dose: 25 mg Documented By: Admin: 05/08/24 08:29 Dose: 25 mg Documented By: WALLY Ondansetron HCl (Ondansetron Inj 2 Mg/Ml 2 Ml Vial) 4 mg IV Q6H PRN PRN Reason: Nausea Stop: 06/06/24 18:51 Last Admin: 05/09/24 16:27 Dose: 4 mg Documented By: EMILIE Potassium Chloride (Potassium Chloride Crtab 20 Meq Tabcr) 40 meq PO NOW STA Stop: 05/07/24 13:11 Last Admin: 05/07/24 13:49 Dose: 40 meq Documented By: NRB Potassium Chloride (Potassium Chloride Crtab 20 Meq Tabcr) 40 meq PO ONE ONE Stop: 05/07/24 21:01 Last Admin: 05/07/24 21:17 Dose: 40 meq Documented By: JESSI Medical Decision Making Differential Diagnosis Viral upper respiratory infection, pneumonia, congestive heart failure, atrial flutter,nstemi, among others Medical Records Attestation: I reviewed the patient's medical records. Home Medications was personally reviewed by me Laboratory Data Attestation: I reviewed the patient's lab results. 05/10/24 06:12 05/10/24 06:12 Lab Results 05/07/24 05/07/24 05/07/24 Range/Units 11:40 11:45 13:59 WBC 18.06 H (4.8-10.8) K/ul RBC 4.70 (4.20-5.40) M/uL Hgb 14.0 (12.0-16.0) g/dl Hct 41.1 (37.0-47.0) % MCV 87.4 (80.0-100.0) fL MCH 29.8 (25.0-34.0) pg MCHC 34.1 (32.0-36.0) g/dL RDW Std Deviation 41.2 (36.4-46.3) fL RDW Coeff of Benjamin 12.8 (11.5-14.5) % Plt Count 402 H (130-400) K/uL MPV 10.0 (9.4-12.4) fL Immature Gran % (Auto) 1.3 % Neut % (Auto) 78.8 % Lymph % (Auto) 14.5 % [place] % (Auto) 5.2 % Eos % (Auto) 0.1 % Baso % (Auto) 0.1 % Neut # (Auto) 14.24 H (1.40-6.50) K/uL Lymph # (Auto) 2.61 (1.20-3.40) K/uL [place] # (Auto) 0.94 H (0.11-0.59) K/uL Eos # (Auto) 0.01 (0.00-0.50) K/uL Baso # (Auto) 0.02 (0.00-0.20) K/uL Immature Gran # (Auto) 0.24 H (0.01-0.20) K/uL D-Dimer 1400 H* (0-500) ug/L FEU Sodium 134 L (136-145) mmol/L Potassium 2.8 L (3.5-5.1) mmol/L Chloride 92 L (98-107) mmol/L Carbon Dioxide 30 (21-32) mmol/L Anion Gap 12 H (3-11) BUN 22 (6-23) mg/dl Creatinine 0.89 (0.6-1.2) mg/dl Est Cr Clr Drug Dosing 38.2 ml/min eGFR 63.49 BUN/Creatinine Ratio 24.7 H (10-20) Glucose 103 H (70-99(Fasting)) mg/dl Lactate (0.4-2.0) mmol/L Calcium 9.7 (8.6-10.3) mg/dl Magnesium 1.9 (1.7-2.4) mg/dl Total Bilirubin 0.8 (0.2-1.0) mg/dl AST 41 H (13-39) U/L ALT 47 (7-52) U/L Alkaline Phosphatase 151 H (34-104) U/L Troponin I High Sens 29.9 H 18.7 H D (0-14) pg/ml Total Protein 8.0 (6.0-8.3) gm/dl Albumin 3.7 (3.4-5.0) gm/dl Globulin 4.3 H (2.5-4.0) gm/dl Albumin/Globulin Ratio 0.9 (0.9-2) Lipase 19 (11-82) U/L Procalcitonin 0.10 (0-0.5) ng/ml Adenovirus (PCR) Not Detected (NotDetected) B. pertussis DNA (PCR) Not Detected (NotDetected) B.parapertussis DNA PCR Not Detected (NotDetected) C. pneumoniae DNA (PCR) Not Detected (NotDetected) Coronavirus OC43 (PCR) Not Detected (NotDetected) Coronavirus HKU1 (PCR) Not Detected (NotDetected) Coronavirus 229E (PCR) Not Detected (NotDetected) SARS-CoV-2 (PCR) Not Detected (NotDetected) Coronavirus NL63 (PCR) Not Detected (NotDetected) Human Metapneumovir PCR Not Detected (NotDetected) Influenza Type A (PCR) Not Detected (NotDetected) Influenza Type B (PCR) Not Detected (NotDetected) M. pneumoniae (PCR) Not Detected (NotDetected) Parainfluenza 1 (PCR) Not Detected (NotDetected) Parainfluenza 2 (PCR) Not Detected (NotDetected) Parainfluenza 3 (PCR) Not Detected (NotDetected) Parainfluenza 4 (PCR) Not Detected (NotDetected) RSV (PCR) Not Detected (NotDetected) Entero/Rhino (PCR) Not Detected (NotDetected) 05/07/24 Range/Units 16:34 WBC (4.8-10.8) K/ul RBC (4.20-5.40) M/uL Hgb (12.0-16.0) g/dl Hct (37.0-47.0) % MCV (80.0-100.0) fL MCH (25.0-34.0) pg MCHC (32.0-36.0) g/dL RDW Std Deviation (36.4-46.3) fL RDW Coeff of Benjamin (11.5-14.5) % Plt Count (130-400) K/uL MPV (9.4-12.4) fL Immature Gran % (Auto) % Neut % (Auto) % Lymph % (Auto) % [place] % (Auto) % Eos % (Auto) % Baso % (Auto) % Neut # (Auto) (1.40-6.50) K/uL Lymph # (Auto) (1.20-3.40) K/uL [place] # (Auto) (0.11-0.59) K/uL Eos # (Auto) (0.00-0.50) K/uL Baso # (Auto) (0.00-0.20) K/uL Immature Gran # (Auto) (0.01-0.20) K/uL D-Dimer (0-500) ug/L FEU Sodium (136-145) mmol/L Potassium (3.5-5.1) mmol/L Chloride (98-107) mmol/L Carbon Dioxide (21-32) mmol/L Anion Gap (3-11) BUN (6-23) mg/dl Creatinine (0.6-1.2) mg/dl Est Cr Clr Drug Dosing ml/min eGFR BUN/Creatinine Ratio (10-20) Glucose (70-99(Fasting)) mg/dl Lactate 1.0 (0.4-2.0) mmol/L Calcium (8.6-10.3) mg/dl Magnesium (1.7-2.4) mg/dl Total Bilirubin (0.2-1.0) mg/dl AST (13-39) U/L ALT (7-52) U/L Alkaline Phosphatase (34-104) U/L Troponin I High Sens (0-14) pg/ml Total Protein (6.0-8.3) gm/dl Albumin (3.4-5.0) gm/dl Globulin (2.5-4.0) gm/dl Albumin/Globulin Ratio (0.9-2) Lipase (11-82) U/L Procalcitonin (0-0.5) ng/ml Adenovirus (PCR) (NotDetected) B. pertussis DNA (PCR) (NotDetected) B.parapertussis DNA PCR (NotDetected) C. pneumoniae DNA (PCR) (NotDetected) Coronavirus OC43 (PCR) (NotDetected) Coronavirus HKU1 (PCR) (NotDetected) Coronavirus 229E (PCR) (NotDetected) SARS-CoV-2 (PCR) (NotDetected) Coronavirus NL63 (PCR) (NotDetected) Human Metapneumovir PCR (NotDetected) Influenza Type A (PCR) (NotDetected) Influenza Type B (PCR) (NotDetected) M. pneumoniae (PCR) (NotDetected) Parainfluenza 1 (PCR) (NotDetected) Parainfluenza 2 (PCR) (NotDetected) Parainfluenza 3 (PCR) (NotDetected) Parainfluenza 4 (PCR) (NotDetected) RSV (PCR) (NotDetected) Entero/Rhino (PCR) (NotDetected) MDM Narrative Patient is an 83-year-old female that presents to the emergency department with complaints of being in a flutter, fatigue, nasal drainage, and cough. Patient seen at her primary care physician today for same symptoms and after doing an EKG they advised her to go to the emergency department. Patient states that when she has had the symptoms in the past that she typically has pneumonia. Patient denies any chest pain, shortness of breath or abdominal pain. Patient was evaluated by myself and findings were noted in the physical exam above. Patient was ordered IV placement, lab work, chest x-ray, upper respiratory viral panel and an EKG. Patient's EKG initially showed atrial flutter with PVCs. Patient was having an IV placed at bedside by nursing staff. Patient was placed on the conveyor monitor and pulse ox as well. Patient was then ordered an initial dose of 10 mg of Cardizem. After the initial dose of Cardizem the patient's heart rate dropped to approximately the 1 teens to 120s. Patient was monitored for short period of time to see if that would come down anymore. Patient's lab work resulted with an elevated white blood cell count of 18.06. Patient also had an elevated DDMR of 1400. Patient was ordered a CTA for PE rule out at this time as well. Patient had a low potassium of 2.8 and elevated Troponin of 29.9. Patient is still remaining in an atrial flutter rhythm, and was given a second dose of cardizem at this time. Her blood pressure has been holding well, so she was ordered 20mg of IV cardizem as a subsequent dose as well as a small saline bolus. Patient was also ordered PO potassium to replace her low potassium. Patient's chest xray was interpreted by radiology to show a right sided pneumonia as well as a 1.8cm right midlung nodular density. I discussed these findings with the patient and her daughter at bedside, both verbalized understanding. I informed the patient that since she has required subsequent doses of Cardizem and has an elevated troponin she will likely need to stay in the hospital to treat her pneumonia as well as monitor her heart. Patient and her daughter both verbalized understanding and were agreeable to this plan. Patient was ordered an IV dose of 1000 mg of Rocephin and an IV dose of 100 mg of doxycycline. Patient was also ordered a K rider at this time as well. Patient does appear to be in a sinus rhythm at this time and her heart rate has been maintaining in the 80s. Patient had a second EKG completed at this time which showed her to be in a sinus rhythm. I spoke with the [facility] hospitalist group about admitting the patient under their service to the hospital for pneumonia and cardiac monitoring. I gave them a full report on the patient's chief complaint, current status and results of her imaging and lab work[facility], please refer to their documentation for further evaluation and monitoring of this patient. Impression Atrial flutter, Pneumonia Discharge Plan Visit Data Chief Complaint: Abnormal Labs/Diagnostic Testing Stated Complaint: ABN EKG, POSSIBLE INFECTION, A-FLUTTER ED Provider: Lorraine Rivers ED Midlevel Provider: Alejandra Capps Discharge Problem: Atrial flutter, Pneumonia Patient Disposition: Admitted As Inpatient Discharge Instructions Interventions: ED Discharge Assessment Last Done: 05/07/24 18:06
== END 2024-05-10 14:26 | disposition home or self-care (01) | DRG 194 ==
LOC: ED 11:27 → 4W 16:47 → INTOOBSV 16:47 → SUATTDRO 16:47 → 4W 18:06